=== PATIENT | female | born 1960 | race Caucasian/White ===

== ENCOUNTER 2021-06-10 14:07 | Emergency (ER) | payer MEDICAID, SELFPAY ==
[2021-06-10] VITALS (7 sets, daily range): BP systolic 107–136; BP diastolic 63–75; PULSE 87–114; RESP 18–28; TEMP 36.6–37.8; O2SAT 88–97; BMI 22.5
--- NOTE | 2021-06-10 14:34 | PC.NURSE ---
NOTIFIED CHARGE NURSE OF NEED OF ROOM FOR PT SHE STATED NONE AVAILABLE PT PLACED ON 2L VIA NC.
--- NOTE | 2021-06-10 16:16 | XRR_ITS ---
PROCEDURE INFORMATION: Exam: XR Chest Exam date and time: 06/10/2021 4:16 PM Age: 61 years old Clinical indication: Dyspnea TECHNIQUE: Imaging protocol: XR of the chest. Views: 1 view. COMPARISON: No relevant prior studies available. FINDINGS: Lungs: Emphysematous changes. Pleural spaces: Unremarkable. No pleural effusion. No pneumothorax. Heart/Mediastinum: Unremarkable. No cardiomegaly. 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
[2021-06-10] MEDS: acetaminophen 500 mg Tablet 1000 MG PO (16:46)
--- NOTE | 2021-06-10 16:55 | ECG_ITS ---
[facility] Test Date: 2021-06-10 Pat Name: Kellie Galdamez Department: Room: Gender: Female Continuity Person: : 1960 Requested By: Albin Shaikh Order Number: [id number] Bran MD: Kacie Brown M.D. Measurements Intervals [place] Rate: 95 P: 80 WI: 158 QRS: 85 QRSD: 118 T: 60 QT: 370 QTc: 467 Interpretive Statements SINUS RHYTHM WITH OCCASIONAL VENTRICULAR PREMATURE COMPLEXES INCOMPLETE RIGHT BUNDLE BRANCH BLOCK [90+ ms QRS DURATION, TERMINAL R IN V1/V2, 40+ ms S IN I/aVL/V4/V5/V6] No previous ECG available for comparison Electronically Signed On 06-11-2021 18:01:41 BATTERY BUILDER by Kacie Brown M.D. [id number]
--- NOTE | 2021-06-10 17:10 | ED_ITS ---
HPI - General Adult General: Chief complaint: Upper Respiratory Infection Stated complaint: TROUBLE BREATHING Time Seen by Provider: 06/10/21 16:16 History of Present Illness: HPI narrative: CC: Shortness of breath, fever and generalized weakness HPI: This is a [61] yo patient w/ hx of smoking presenting to the ED with malaise, generalized weakness, cough sputum production, and fever at home x 3- 4days. Since onset of symptoms, has had some shortness of breath and decreased PO intake. NO recent travel. Endorses no sick contacts around. Denies vomiting but reports nausea and diarreha. Denies diaphoresis, other GI or complaints. Denies any pleuritic chest pain, recent surgery/immobilization/travel, or hematemesis or hx of VTE in the past. Onset: 3-4 days ago Duration: ongoing for the last 3-4 days Location: home Severity: moderate Review of Systems Narrative: Constitutional: +subjective fever, +generalized weakness HEENT: No vision changes CV: No chest pain, no palpitations PULM: +cough, +dyspnea. GI: No abdominal pain, +N/-V/+D. : No dysuria MSKEL: No muscle pain SKIN: No new rashes, no lesions. NEURO: No headache, no focal weakness. HEME: No visible bruises PSYCH: Normal mood Physical Exam Narrative: EXAM NARRATIVE: Head: Atraumatic Eyes: PERRL, conjunctiva without injection ENT: Mucous membrane Dry NECK: Supple without lymphadenopathy LUNGS: Coarse lung sounds, tachypnea, no crackles/rhonchi, +mild wheezes b/l CV: Sinus tachycardia ABDOMEN: Soft, nontender EXTREMITY: Normal ROM SKIN: No rash or erythema NEURO: Awake and alert. No focal motor deficits. PSYCH: Normal mood and affect. Course Vital Signs: Vital signs: Vital Signs Temperature 97.8 F 06/10/21 19:48 Pulse Rate 87 06/10/21 19:48 Respiratory Rate 21 H 06/10/21 19:20 Blood Pressure 122/72 06/10/21 19:20 Pulse Oximetry 97 06/10/21 19:20 MDM - General Adult MDM Narrative: Medical decision making narrative: [61]yo patient w/ hx of smoking presenting to the ED with shortness of breath, cough, and malaise concerning . Workup today includes XR chest Defer lab work at this time given that the patient is well appearing with stable vital signs and without recent hospitalization or care facility stay. Given History, Exam, and Workup presentation most consistent with pneumonia.Presentation not consistent with PE, COPD exacerbation, Pneumothorax, TB, Atypical ACS, Esophageal Rupture, Toxic Exposure, Foreign Body Airway Obstruction. Workup: CXR Chest, COVID antigen/ COVID PCR send out Intervention: Tylenol 1gram, PO challenge, serial reassessment, oxygen, duo-neb, decadron [6:30pm] On reassessment, XR findings negative for acute findings. Findings consistent with COVID. Afebrile currently. Patient continues to sat at 95% on 2L oxygen. I performed shared decision making with patient for inpatient admission versus discharge home At [6:30pm], patient declined admission citing strong desire to go home on home oxygen. I have discussed the risks of leaving hospital today including risks of sudden pulmonary decompensation leading to severe respiratory distress and even . Patient verbalizes understanding the consequence of the risks of leaving the hospital today and alternative including staying for serial observation. Given patient's strong desire to go home, I have offered patient outpatient oxygen tank/supply and portable pulse ox with proper instruction to use at home. Patient agrees to monitor oxygen saturation and to come back to the ED if there is any drops in pulse ox reading despite oxygen use. In addition, I have given patient strict follow up with PCP in 24 hrs for reevaluation. Patient verbalizes understanding of all components of our discussion today and reassures me of follow up with PCP and close monitoring. Patient will be going home with 2 L of home oxygen per respiratory therapy. Rx maalox/pepcid PRN dyspepsis, zofran PRN nausea/vomiting, tylenol PRN fever Disposition: Discharge. Patient is given strict return precautions for any worsening dypsnea, changes in pulse ox numbers, any worsening fatigue, dehydration, generalized weakness, altered mental status, increased oxygen requirement, or any new or concerning issues. Lab Data: Labs: Lab Results 06/10/21 06/10/21 06/10/21 16:53 16:53 16:53 WBC 8.1 10^3/uL 10^3/ uL (4.0-10.0) RBC 5.03 10^6/uL 10^6 /uL (4.1-5.3) Hgb 14.0 g/dL g/dL (11.5-15.3) Hct 42.3 % % (37.0-47.0) MCV 84.1 fl fl (81-99) MCH 27.8 pg L pg (28.0-34.0) MCHC 33.1 g/dL g/dL (30.0-36.0) RDW 13.0 % % (12.1-15.1) Plt Count 161 10^3/cmm 10^3 /cmm (130-400) MPV 10.5 fL H fL (7.4-10.4) Neut % (Auto) 82.2 % % Lymph % (Auto) 7.7 % % [place] % (Auto) 9.5 % % Eos % (Auto) 0.0 % % Baso % (Auto) 0.2 % % Neut # (Auto) 6.69 10^3/uL 10^3 /uL (1.8-7.7) Lymph # (Auto) 0.6 10^3/uL L 10^ 3/uL (0.8-4.8) [place] # (Auto) 0.8 10^3/uL 10^3/ uL (0.2-0.9) Eos # (Auto) 0.0 10^3/uL 10^3/ uL (0.0-0.8) Baso # (Auto) 0.0 10^3/uL 10^3/ uL (0.0-0.1) Nucleated RBC % (a uto) 0 % % Nucleated RBCs # 0.0 /100WBC /100W BC Sodium 134 mmol/L L mmol /L (136-145) Potassium 3.7 mmol/L mmol/L (3.5-5.1) Chloride 97 mmol/L L mmol/ L (98-107) Carbon Dioxide 25 mmol/L mmol/L (22-29) Anion Gap 15.7 (5-19) BUN 15 mg/dL mg/dL (8-23) Creatinine 0.4 mg/dL L mg/dL (0.5-0.9) GFR Calculation 161.2 mL/min H mL /min (90-130) Glucose 113 mg/dL mg/dL (65-115) Calculated Osmolal ity 280 mOsm/kg L mOs m/kg (285-295) Calcium 8.3 mg/dL L mg/dL (8.5-10.5) Influenza Type A A g Negative (Negative) Influenza Type B A g Negative (Negative) SARS-CoV-2 Ag (Rap id) 06/10/21 16:53 WBC RBC Hgb Hct MCV MCH MCHC RDW Plt Count MPV Neut % (Auto) Lymph % (Auto) [place] % (Auto) Eos % (Auto) Baso % (Auto) Neut # (Auto) Lymph # (Auto) [place] # (Auto) Eos # (Auto) Baso # (Auto) Nucleated RBC % (a uto) Nucleated RBCs # Sodium Potassium Chloride Carbon Dioxide Anion Gap BUN Creatinine GFR Calculation Glucose Calculated Osmolal ity Calcium Influenza Type A A g Influenza Type B A g SARS-CoV-2 Ag (Rap id) Positive H (Negative) Imaging Data^: Other Imaging: Radiologist's impression: [address] [id number] ReportSigned Patient: Kellie Galdamez #: [id number]: 1960cct#:[id number]/Sex: 61 / FADM Date: 06/10/21Loc: ERRoom/Bed:Attending Dr: Ordering Provider/Ordering MD: Albin Shaikh MD Date of Service: 06/10/21 Procedure(s): XR chest 1V portable [id number] Accession Number(s): [id number] Report Number: [id number] PROCEDURE INFORMATION: Exam: XR Chest Exam date and time: 06/10/2021 4:16 PM Age: 61 years old Clinical indication: Dyspnea TECHNIQUE: Imaging protocol: XR of the chest. Views: 1 view. COMPARISON: No relevant prior studies available. FINDINGS: Lungs: Emphysematous changes. Pleural spaces: Unremarkable. No pleural effusion. No pneumothorax. Heart/Mediastinum: Unremarkable. No cardiomegaly. 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 appears nonaggressive XR/XR chest 1V portable [id number] IMPRESSION: Emphysematous changes, lungs are clear Radiation Dose CTDIVOL = (mGy): DLP = (mGy-cm) Dictated By:Sony Leblanc MDSigned By:Sony Leblanc MDSigned Date/Time:06/10/21 [id number]/ 1616 Discharge Plan Discharge Patient Disposition: Home Clinical Impression: Cough, Fever, Diarrhea, Generalized weakness, COVID, COVID Condition: Stable Prescriptions: New Zofran 4 mg tablet 4 mg PO TID PRN (Reason: nausea and vomiting) 4 Days Qty: 12 RF: 0 acetaminophen 500 mg tablet 500 mg PO Q6H PRN (Reason: pain) 5 Days Qty: 20 RF: 0 Pepcid 20 mg tablet 20 mg PO BID PRN (Reason: abdominal pain) 10 Days Qty: 20 RF: 0 Maalox Advanced 1,000-60 mg tablet,chewable 1 tab PO TID PRN (Reason: abdominal pain) 7 Days Qty: 21 RF: 0 No Action Aleve 220 mg Tablet 220 mg PO Q12H PRN (Reason: Pain) RF: 0 Discharge Orders: Discharge ED (Routine); Ordered 06/10/21 Ordered By: Albin Shaikh Other Ambulatory Orders: DME: Oxygen (Order) Location: None Selected Ordered By: Albin Shaikh Discharge Diet: Advance as tolerated Discharge Activity: Resume usual activity Patient Instructions: COVID-19 (Coronavirus Disease 2019) (ED) Activity Restrictions/Additional Instructions: Come back to the emergency room if your symptoms worsen, have any shortness of breath, fever/chills, dehydration, inability tolerate p.o., any difficulty breathing, or any new or concerning complaints. Please use your pulse ox daily. Please return to the emergency room if your pulse ox reads consistently less than 88%. Use your home oxygen 2 L as needed. Coding Level of Care Code ED Assembly Stock Supervisor for Rere Walton
--- NOTE | 2021-06-10 17:12 | PC.PHAR ---
pt states she takes care of her own medications-pt states she takes no rx medications no meds pull up on ext med history
[2021-06-10] MEDS: sodium chloride 0.9% 1,000 ML 999 ML IV ×2 (17:13→19:19)
[2021-06-10 17:20] LABS: Basophils % 0.2 %; Hematocrit 42.3 % (37.0-47.0); Lymphocytes # 0.6 10^3/uL (0.8-4.8); Lymphocytes % 7.7 %; Mean Corpuscular HGB Conc 33.1 g/dL (30.0-36.0); Mean Corpuscular Hemoglobin 27.8 pg (28.0-34.0); Mean Corpuscular Volume 84.1 fl (81-99); Mean Platelet Volume 10.5 fL (7.4-10.4); Monocytes # 0.8 10^3/uL (0.2-0.9); Monocytes % 9.5 %; Neutrophils # 6.69 10^3/uL (1.8-7.7); Neutrophils % 82.2 %; Nucleated Red Blood Cells % 0 %; Platelet Count 161 10^3/cmm (130-400); Red Blood Count 5.03 10^6/uL (4.1-5.3); White Blood Count 8.1 10^3/uL (4.0-10.0)
[2021-06-10 17:46] LABS: Anion Gap 15.7 (5-19); Blood Urea Nitrogen 15 mg/dL (8-23); Calcium 8.3 mg/dL (8.5-10.5); Carbon Dioxide 25 mmol/L (22-29); Chloride 97 mmol/L (98-107); Glomerular Filtration Rate 161.2 mL/min (90-130); Glucose 113 mg/dL (65-115); Osmolality Calculated 280 mOsm/kg (285-295); Potassium 3.7 mmol/L (3.5-5.1); Sodium 134 mmol/L (136-145)
[2021-06-10] MEDS: ondansetron 2 mg/ML SDV 2 mL 4 MG IVP (17:55)
[2021-06-10] MEDS: dexamethasone 10 mg/mL INJ 6 MG IVP (17:56)
[2021-06-10 18:09] LABS: SARS Covid-2 Antigen Positive (Negative)
[2021-06-10 18:10] LABS: Influenza A by IFA Negative (Negative); Influenza B by IFA Negative (Negative)
[2021-06-10] MEDS: remdesivir 200 MG in sodium chloride 0.9% (100 ml) 60 ML 100 MG IV (19:19)
[2021-06-10] MEDS: ketorolac 30 mg/mL INJ IVP (19:47)
[2021-06-11 14:50] LABS: Coronavirus Test Green County Detected
== END 2021-06-10 21:35 | disposition home or self-care (01) ==
PROVIDERS: Emergency Provider Emergency Medicine
DX: U07.1 COVID-19 (principal); R06.02 Shortness of breath; R05.9 Cough, unspecified; R19.7 Diarrhea, unspecified; R53.1 Weakness
CPT/HCPCS: 71045; 80048; 85025; 87426; 87635; 87804; 93005; 96361; 96365; 96375; 99284; J1100; J1885; J2405; J7030

== ENCOUNTER 2021-06-12 09:32 | Emergency (ER) | payer MEDICAID, SELFPAY ==
[2021-06-12] VITALS (13 sets, daily range): BP systolic 106–152; BP diastolic 50–66; PULSE 81–123; RESP 18–26; TEMP 36.6–37.1; O2SAT 93–99
--- NOTE | 2021-06-12 09:55 | XR_ITS ---
WS: [id number] Portable AP upright chest, 06/12/2021 Clinical Data: sob Comparison: Portable chest, 06/10/2021. Findings: Minimal patchy bilateral opacities have developed since the last chest x-ray. The heart is normal. No nodules, masses or effusions are seen. The pulmonary vascularity is not remarkable. The di aphragms are flattened. 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 There i s osteoarthritis of the right shoulder joint. XR/XR chest 1V portable [id number] Impression: 1. Development of minimal patchy bilateral opacities in the last 2 days which m ay represent acute pneumonia. 2. Hyperinflation.
--- NOTE | 2021-06-12 10:02 | W.ED.SOB ---
HPI - SOB/Dyspnea General: Chief Complaint: Shortness of Breath/Dyspnea Stated Complaint: Covid + resp distress Time Seen by Provider: 06/12/21 09:48 Source: RN notes reviewed and old records reviewed Mode of arrival: EMS History of Present Illness: HPI Narrative: 61-year-old female that is a very poor historian presents chief complaint of worsening of her symptoms patient apparently was recently found to be positive for Covid unknown which was diagnosed due to her being a poor historian patient presented to the ER for further assessment of acute shortness of breath difficulty breathing and low O2 sat. MD elicited complaint: shortness of breath and cough Review of Systems General: Reports: ROS unobtainable due to medical condition and ROS unobtainable due to mental status Physical Exam Narrative: EXAM NARRATIVE: Patient appears to be in moderate respiratory distress moderate tachypnea pressuring breathing noted inspiratory expiratory wheezing noted Const: COMMON NORMALS: healthy appearing; apparent distress (Patient moderate respiratory distress with tachypnea with inspiratory expir) EXAM LIMITATIONS: altered mental status HENMT: COMMON NORMALS: normocephalic and atraumatic HEAD & SCALP: normocephalic and atraumatic Eye: COMMON NORMALS: Equal, round and reactive pupils present and EOMs intact bilaterally PUPIL: Yes Equal, round and reactive pupils present Neck/C-Spine: COMMON NORMALS: full ROM, supple and no JVD Lymph: LYMPHATIC: no lymphadenopathy noted Chest: COMMONS NORMALS: normal inspection of the chest and normal palpation of entire chest wall Resp: COMMON NORMALS: normal respiratory effort, No retractions and clear to auscultation bilaterally EFFORT & INSPECTION: Yes able to speak in complete sentences and Yes symmetric chest movement AUSCULTATION: clear to auscultation bilaterally Cardio: COMMON NORMALS: no JVD, regular rhythm and S1 normal heart sound present; negative for regular rate (tachycardic in 120 bpm on exam. ) RATE: abnormal rate (tachycardic in 120 bpm on exam. ) RHYTHM: regular rhythm and abnormal rhythm HEART SOUNDS: S1 normal heart sound present GI: COMMON NORMALS: Normal to inspection, nondistended, normoactive bowel sounds present, Soft to palpation and non-tender INSPECTION: Yes normal to inspection PALPATION: Yes Soft to palpation : COMMON NORMALS: Yes no CVA tenderness BLADDER/KIDNEY EXAM: Yes no CVA tenderness Back/Pelvis: COMMON NORMALS: no CVA tenderness Extremity: COMMON NORMALS: normal to inspection and full ROM Neuro: COMMON NORMALS: CN's II-XII intact bilaterally, moves all extremities and no focal motor deficits Psych: COMMON NORMALS: mental status grossly normal, Normal thought process present, cooperative and normal affect THOUGHT PROCESS: Normal thought process present Skin: COMMON NORMALS: no rashes or lesions noted GENERAL SKIN EXAM: no rashes or lesions noted Course ED course: prior to arrival per EMS or provided Decadron and steroids neb treatments will be obtaining additional Covid lab work will continue to follow. Vital Signs: Vital signs: Vital Signs Temperature 98.1 F 06/12/21 10:29 Pulse Rate 94 06/12/21 14:17 Respiratory Rate 23 H 06/12/21 14:17 Blood Pressure 108/66 06/12/21 14:17 Pulse Oximetry 93 06/12/21 14:17 MDM - SOB/Dyspnea MDM Narrative: Medical decision making narrative: Patient was attempted to be admitted to our facility due to her hypoxia due to COVID-19 pneumonia she eventually required BiPAP due to low ABG she has become encephalopathic due to her pH 7.260 PCO2 is 59.7. She tolerated BiPAP quite well she was found to have generalized elevation her labs suggestive of COVID-19 which she was found to have 3 days ago patient is on day 6 attempt admit her to our facility we have no ICU or stepdown bed availability. Had staff contact multiple facilities patient eventually was accepted at [facility] located in [facility] by Dr. Serra, patient will go by ground transportation via ALS. Lab Data: Labs: Lab Results 06/12/21 06/12/21 06/12/21 10:42 10:50 10:50 WBC 9.1 10^3/uL 10^3/ uL (4.0-10.0) RBC 5.14 10^6/uL 10^6 /uL (4.1-5.3) Hgb 14.1 g/dL g/dL (11.5-15.3) Hct 44.7 % % (37.0-47.0) MCV 87.0 fl fl (81-99) MCH 27.4 pg L pg (28.0-34.0) MCHC 31.5 g/dL g/dL (30.0-36.0) RDW 13.2 % % (12.1-15.1) Plt Count 189 10^3/cmm 10^3 /cmm (130-400) MPV 11.0 fL H fL (7.4-10.4) Lymph % (Auto) Not Reportable [place] % (Auto) Not Reportable Lymph # (Auto) Not Reportable [place] # (Auto) Not Reportable Total Counted 100 (0-100) Atypical Lymphs % 0.0 % % (0-5) Absolute Neutrophi ls 8.1 10^3/cmm H 10 ^3/cmm (1.4-6.5) Segmented Neutroph ils 66 % % Abs Segm Neuts (Ma n) 6.0 10/cmm 10/cmm (1.6-7.1) Band Neutrophils 23.0 % % Abs Band Neuts (Ma n) 2.1 10^3/cmm H 10 ^3/cmm (0.0-1.2) Absolute Lymphocyt es 0.2 10^3/cmm L 10 ^3/cmm (1.2-3.4) Lymphocytes (Manua l) 2 % % Monocytes (Manual) 9.0 % % Absolute Monocytes 0.8 10^3/cmm H 10 ^3/cmm (0.1-0.6) Eosinophils (Manua l) 0 % % Absolute Eosinophi ls 0.0 10^3/cmm 10^3 /cmm (0.0-0.7) Basophils (Manual) 0.0 % % Absolute Basophils 0.0 10^3/cmm 10^3 /cmm (0.0-0.2) Platelet Estimate Normal (Normal) Giant Platelets Trace PT 14.30 SECONDS SEC ONDS (12.1-14.9) INR 1.08 (0.8-1.2) Specimen Type Arterial Sample Site Radial, left ABG pH 7.26 L (7.35-7.45) ABG pCO2 69.7 mmHg H* mmHg (35-45) ABG pO2 106.0 mmHg H mmHg (80.0-100.0) ABG HCO3 31.2 mmol/L H mmo l/L (22-26) ABG Base Excess 2.1 mmol/L H mmol /L (-2.0-2.0) Willi Test Pos Hematocrit 41.8 % % (37-47) Hgb O2 Saturation 96.2 % % (95-100) Carboxyhemoglobin 0.8 %THgb %THgb (0.4-20.1) Methemoglobin 0.9 % % (0.4-1.5) Total Hemoglobin 13.6 g/dL g/dL (12-16) O2 Delivery Device Nc O2 Liters/Min 4.0 % % FiO2 36.0 % % Clerical Order Filler ID Hensa Sodium Potassium Chloride Carbon Dioxide Anion Gap BUN Creatinine GFR Calculation Glucose Calculated Osmolal ity Lactic Acid Lactic Acid (Sepsi s) Calcium Total Bilirubin AST ALT Alkaline Phosphata se Lactate Dehydrogen ase Troponin T Baselin e Troponin T 120 Min [place] Troponin T C-Reactive Protein NT-Pro-B Natriuret Pep Total Protein Albumin Globulin Lipase Urine Color Urine Appearance Urine pH Ur Specific Gravit y Urine Protein Urine Glucose (UA) Urine Ketones Urine Blood Urine Nitrate Urine Bilirubin Urine Urobilinogen Ur Leukocyte Lalita ase 06/12/21 06/12/21 06/12/21 10:50 10:50 10:50 WBC RBC Hgb Hct MCV MCH MCHC RDW Plt Count MPV Lymph % (Auto) [place] % (Auto) Lymph # (Auto) [place] # (Auto) Total Counted Atypical Lymphs % Absolute Neutrophi ls Segmented Neutroph ils Abs Segm Neuts (Ma n) Band Neutrophils Abs Band Neuts (Ma n) Absolute Lymphocyt es Lymphocytes (Manua l) Monocytes (Manual) Absolute Monocytes Eosinophils (Manua l) Absolute Eosinophi ls Basophils (Manual) Absolute Basophils Platelet Estimate Giant Platelets PT INR Specimen Type Sample Site ABG pH ABG pCO2 ABG pO2 ABG HCO3 ABG Base Excess Willi Test Hematocrit Hgb O2 Saturation Carboxyhemoglobin Methemoglobin Total Hemoglobin O2 Delivery Device O2 Liters/Min FiO2 Clerical Order Filler ID Sodium 134 mmol/L L mmol /L (136-145) Potassium 3.7 mmol/L mmol/L (3.5-5.1) Chloride 95 mmol/L L mmol/ L (98-107) Carbon Dioxide 25 mmol/L mmol/L (22-29) Anion Gap 17.7 (5-19) BUN 11 mg/dL mg/dL (8-23) Creatinine 0.4 mg/dL L mg/dL (0.5-0.9) GFR Calculation 161.2 mL/min H mL /min (90-130) Glucose 152 mg/dL H mg/dL (65-115) Calculated Osmolal ity 280 mOsm/kg L mOs m/kg (285-295) Lactic Acid 2.1 mmol/L mmol/L (0.5-2.2) Lactic Acid (Sepsi s) Calcium 7.9 mg/dL L mg/dL (8.5-10.5) Total Bilirubin 0.3 mg/dL mg/dL (0.15-1.2) AST 30 U/L U/L (0-32) ALT 32 U/L U/L (0-33) Alkaline Phosphata se 83 IU/L IU/L (35-105) Lactate Dehydrogen ase 213 U/L U/L (135-214) Troponin T Baselin e 81 ng/L H ng/L (0-10) Troponin T 120 Min [place] Troponin T C-Reactive Protein 126.8 mg/L H mg/L (0.0-4.9) NT-Pro-B Natriuret Pep 1108 pg/mL H pg/m L (0-125) Total Protein 6.5 g/dL L g/dL (6.6-8.7) Albumin 3.4 g/dL L g/dL (3.5-5.2) Globulin 3.1 g/dL g/dL (1.3-4.6) Lipase 15 U/L U/L (13-60) Urine Color Urine Appearance Urine pH Ur Specific Gravit y Urine Protein Urine Glucose (UA) Urine Ketones Urine Blood Urine Nitrate Urine Bilirubin Urine Urobilinogen Ur Leukocyte Lalita ase 06/12/21 06/12/21 06/12/21 12:30 13:05 14:28 WBC RBC Hgb Hct MCV MCH MCHC RDW Plt Count MPV Lymph % (Auto) [place] % (Auto) Lymph # (Auto) [place] # (Auto) Total Counted Atypical Lymphs % Absolute Neutrophi ls Segmented Neutroph ils Abs Segm Neuts (Ma n) Band Neutrophils Abs Band Neuts (Ma n) Absolute Lymphocyt es Lymphocytes (Manua l) Monocytes (Manual) Absolute Monocytes Eosinophils (Manua l) Absolute Eosinophi ls Basophils (Manual) Absolute Basophils Platelet Estimate Giant Platelets PT INR Specimen Type Sample Site ABG pH ABG pCO2 ABG pO2 ABG HCO3 ABG Base Excess Willi Test Hematocrit Hgb O2 Saturation Carboxyhemoglobin Methemoglobin Total Hemoglobin O2 Delivery Device O2 Liters/Min FiO2 Clerical Order Filler ID Sodium Potassium Chloride Carbon Dioxide Anion Gap BUN Creatinine GFR Calculation Glucose Calculated Osmolal ity Lactic Acid Lactic Acid (Sepsi s) 1.6 mmol/L mmol/L (0.5-2.2) Calcium Total Bilirubin AST ALT Alkaline Phosphata se Lactate Dehydrogen ase Troponin T Baselin e Troponin T 120 Min [place] 93.11 ng/L H ng/L (0-10) Delta Troponin T 12.11 ABS# H* ABS # (0-10) C-Reactive Protein NT-Pro-B Natriuret Pep Total Protein Albumin Globulin Lipase Urine Color Yellow (Yellow) Urine Appearance Clear (CLEAR) Urine pH 5 (5-7) Ur Specific Gravit y 1.010 (1.005-1.030) Urine Protein Neg (Negative) Urine Glucose (UA) Trace H (Normal) Urine Ketones Negative (Negative) Urine Blood Neg (Negative) Urine Nitrate Negative (Negative) Urine Bilirubin Neg (Negative) Urine Urobilinogen Norm mg/dL mg/dL (Negative) Ur Leukocyte Lalita ase Negative (Negative) Discharge Plan Discharge Patient Disposition: Xfer Short-Term Hosp Clinical Impression: Pneumonia due to 2019 novel coronavirus, Acute respiratory failure with hypoxia Condition: Fair Coding Level of Care Code ED Architectural Draftsman for Slickg Fwd Exam Comprehensive
--- NOTE | 2021-06-12 10:41 | PC.PHAR ---
pt unable to verify medications-called pts starr [phone] no answer and called pts daughter alba [phone] no answer-medications entered are the rxs written when pt was here on 06/10/21 and the aleve that the pt states she was taking when she was here on 06/10/21
[2021-06-12] MEDS: sodium chloride 0.9% 500 ML 999 ML IV (10:50)
[2021-06-12] MEDS: FUROsemide 10 mg/mL SDV 4mL 40 MG IVP (10:51)
[2021-06-12] MEDS: magnesium sulfate premix 2 GM/50 ML PIGGYBACK IV (10:54)
[2021-06-12 10:55] LABS: ABG PH Result 7.26 (7.35-7.45); Arterial Blood Gas Hematocrit 41.8 % (37-47); Base Excess ABG 2.1 mmol/L (-2.0-2.0); Blood Gas Allen Test Pos; Blood Gas Sample Site Radial, left; Blood Gas Sample Type Arterial; Carboxyhemoglobin 0.8 %THgb (0.4-20.1); HCO3 ABG 31.2 mmol/L (22-26); HGB O2 Sat 96.2 % (95-100); Methemoglobin 0.9 % (0.4-1.5); Oxygen Device NC; Total Hemoglobin 13.6 g/dL (12-16)
[2021-06-12 11:01] LABS: Hematocrit 44.7 % (37.0-47.0); Hemoglobin 14.1 g/dL (11.5-15.3); Mean Corpuscular HGB Conc 31.5 g/dL (30.0-36.0); Mean Corpuscular Hemoglobin 27.4 pg (28.0-34.0); Platelet Count 189 10^3/cmm (130-400); Red Blood Count 5.14 10^6/uL (4.1-5.3); Red Cell Distribution Width 13.2 % (12.1-15.1); White Blood Count 9.1 10^3/uL (4.0-10.0)
[2021-06-12 11:17] LABS: INR 1.08 (0.8-1.2)
[2021-06-12 11:26] LABS: ABG PCO2 69.7 mmHg (35-45)
[2021-06-12 11:32] LABS: Lactic Sepsis W/Reflex 2.1 mmol/L (0.5-2.2)
[2021-06-12 11:42] LABS: Alanine Aminotransferase 32 U/L (0-33); Albumin Level 3.4 g/dL (3.5-5.2); Alkaline Phosphatase 83 IU/L (35-105); Anion Gap 17.7 (5-19); Aspartate Amino Transferase 30 U/L (0-32); Blood Urea Nitrogen 11 mg/dL (8-23); C Reactive Protein 126.8 mg/L (0.0-4.9); Calcium 7.9 mg/dL (8.5-10.5); Carbon Dioxide 25 mmol/L (22-29); Chloride 95 mmol/L (98-107); Globulin 3.1 g/dL (1.3-4.6); Glomerular Filtration Rate 161.2 mL/min (90-130); Glucose 152 mg/dL (65-115); Lactate Dehydrogenase 213 U/L (135-214); Lipase 15 U/L (13-60); NT Pro B Type Natriuretic Pept 1108 pg/mL (0-125); Osmolality Calculated 280 mOsm/kg (285-295); Potassium 3.7 mmol/L (3.5-5.1); Sodium 134 mmol/L (136-145); Total Bilirubin 0.3 mg/dL (0.15-1.2); Total Protein 6.5 g/dL (6.6-8.7)
--- NOTE | 2021-06-12 11:52 | ECG_ITS ---
[facility] Test Date: 2021-06-12 Pat Name: Kellie Galdamez Department: Room: Gender: Female Mattress Filler: : 1960 Requested By: Canelo Hopkins Order Number: [id number] Bran MD: Kala Lester M.D. Measurements Intervals [place] Rate: 104 P: 79 [place]: 148 QRS: 81 QRSD: 116 T: 47 QT: 365 QTc: 482 Interpretive Statements SINUS TACHYCARDIA WITH OCCASIONAL VENTRICULAR PREMATURE COMPLEXES INCOMPLETE RIGHT BUNDLE BRANCH BLOCK [90+ ms QRS DURATION, TERMINAL R IN V1/V2, 40+ ms S IN I/aVL/V4/V5/V6] ABNORMAL RHYTHM ECG Compared to ECG 06/10/2021 18:04:07 Sinus rhythm no longer present Electronically Signed On 06-12-2021 23:42:59 TELEPHONE ASSEMBLER by Kala Lester M.D. [id number]
[2021-06-12 12:44] LABS: Slide Review Slide Review Perform; Total Cells Counted 100 (0-100)
[2021-06-12 12:45] LABS: Reflex Lactate Order REFLEX LACTIC ORDERD
[2021-06-12 12:49] LABS: Absolute Neutrophil 8.1 10^3/cmm (1.4-6.5); Band Neutrophils Absolute 2.1 10^3/cmm (0.0-1.2); Eosinophils 0 %; Giant Platelets Trace; Lymphocytes 2 %; Lymphocytes Absolute 0.2 10^3/cmm (1.2-3.4); Monocytes Absolute 0.8 10^3/cmm (0.1-0.6); Platelet Estimate Normal (Normal); Segmented Neutrophils 66 %
[2021-06-12] MEDS: acetaminophen 1,000 MG/100 ML PIGGYBACK 400 MG IV (12:57)
[2021-06-12] MEDS: sodium chloride 0.9% 1,000 ML 999 ML IV ×2 (12:58→16:08)
[2021-06-12 13:18] LABS: Add Urine Microscopic? NO; Charge for UA Resulting for Rev
[2021-06-12 13:21] LABS: Troponin(5th) Baseline 81 ng/L (0-10)
[2021-06-12 13:28] LABS: Urine Color Yellow (Yellow)
[2021-06-12 13:29] LABS: Bilirubin Urine Neg (Negative); Blood Urine Neg (Negative); Glucose Urine UA Trace (Normal); Ketones Urine Negative (Negative); Leukocyte Esterase Urine Negative (Negative); Nitrate Urine Negative (Negative); Protein Urine Neg (Negative); Urine Appearance Clear (CLEAR); Urobilinogen Urine Norm (Negative); pH Urine 5 (5-7)
[2021-06-12 13:31] LABS: Troponin 5 2HR 93.11 ng/L (0-10)
[2021-06-12 13:33] LABS: Troponin 5 2HR Delta 12.11 ABS# (0-10)
[2021-06-12] MEDS: dexamethasone 10 mg/mL INJ 20 MG IVP (14:30)
[2021-06-12 14:51] LABS: Lactic Acid level (Lactate) 1.6 mmol/L (0.5-2.2)
[2021-06-12] MEDS: remdesivir 200 MG in sodium chloride 0.9% (100 ml) 60 ML 100 MG IV (15:08)
--- NOTE | 2021-06-12 16:40 | PC.NURSE ---
Called and gave report to Madelin BOOKER at [facility].
[2021-06-12 17:47] LABS: Troponin 5 6HR 70.36 ng/L (0-10)
== END 2021-06-12 18:09 | disposition short-term general hospital (02) ==
PROVIDERS: Emergency Provider Emergency Medicine
DX: U07.1 COVID-19 (principal); J12.82 Pneumonia due to coronavirus disease 2019; J96.01 Acute respiratory failure with hypoxia
CPT/HCPCS: 36415; 36600; 51702; 71045; 80053; 81003; 82805; 83605; 83615; 83690; 83880; 84484; 85007; 85025; 85610; 86140; 87040; 93005; 94640; 94660; 96361; 96365; 96367; 96375; 99291; J1100; J1940; J3475; J7030; J7040; J7611

== ENCOUNTER → 2021-07-15 15:21 | Outpatient (BNVA) | payer MEDICAID, SELFPAY | PROVIDERS: PCP Nurse Practitioner Family; Visit Provider Nurse Practitioner Family | DX: M79.89 Other specified soft tissue disorders (principal); I10 Essential (primary) hypertension | CPT/HCPCS: 80053; 83880 ==

== ENCOUNTER → 2021-08-28 09:58 | Outpatient (BNVA) | payer MEDICAID, SELFPAY | PROVIDERS: PCP Nurse Practitioner Family; Visit Provider Nurse Practitioner Family | DX: L65.9 Nonscarring hair loss, unspecified (principal); R60.9 Edema, unspecified | CPT/HCPCS: 80061; 84443 ==

== ENCOUNTER 2021-09-02 13:30 | Outpatient (CLI) | payer MEDICAID, SELFPAY ==
--- NOTE | 2021-09-02 13:30 | USCV_ITS ---
Kellie Galdamez Age: 61 Gender: F : 1960 Exam Date: 09/02/2021 13:44 Ordering Phys: Nicolle Fox-Dede FLOW MATCH SOFA CUTTER Technologist: CATHERINE Exam Location: [facility] Indication: PVD Risk Factors: Previous Vascular Surgery: RIGHT LEFT BP: 127.0 / 90.00 BP: 139.0/ 85.00 0 0 Waveform Velocity (cm/s) Velocity (cm/s) Waveform Biphasic 117.3 Iliac Prox 127.8 Biphasic Biphasic 81.7 Iliac Mid 95.6 Biphasic Biphasic 132.2 Iliac Distal 107.6 Biphasic Biphasic 77.9 UX INFORMATION ARCHITECT 117.0 Biphasic Biphasic 139.8 SFA Prox 117.0 Biphasic Biphasic 145.9 SFA Mid 159.8 Biphasic Biphasic SFA Dist Biphasic 102.5 100.9 Biphasic 38.3 POP 76.0 Biphasic Biphasic 39.0 FLATWORK IRONER 53.4 Biphasic Biphasic 43.5 DPA 31.5 Biphasic 0.8 KAREN 0.9 FINDINGS Mildly diminished resting ABIs bilaterally Mild diffuse plaques in the iliac and femoral arteries bilaterally. Abnormal arterial Doppler waveforms CONCLUSIONS 1. Features history of some mild peripheral artery disease bilaterally. 2. Mild diffuse plaques in the iliac and femoral arteries bilaterally, based on the B-mode imaging. Dr Kala Lester MD [facility] (Electronically Signed) Final Date: 03 September 2021 08:55 S
== END 2021-09-02 13:31 | disposition home or self-care (01) ==
LOC: RAD 13:32
PROVIDERS: PCP Nurse Practitioner Family; Visit Provider Nurse Practitioner Family
DX: R60.0 Localized edema (principal); I73.9 Peripheral vascular disease, unspecified; I70.8 Atherosclerosis of other arteries
CPT/HCPCS: 93925

== ENCOUNTER 2021-11-22 15:21 | Outpatient (CLI) | payer MEDICAID, SELFPAY ==
--- NOTE | 2021-11-22 15:41 | XR_ITS ---
WS: [id number] XR hip LT 2-3V wo/w pel* [id number] REASON FOR EXAM: M25.552 - Pain in left hip FINDINGS: No fracture or focal bone lesion. Severe narrowing of the left hip joint space with subchondral sclerosis and cystic change in the acet abulum and femoral head with large circumferential osteophyte of the femoral head. No soft tissue abnormality. XR/XR hip LT 2-3V wo/w pel* [id number] IMPRESSION: Severe osteoarthritis of the left hip.
== END 2021-11-22 15:22 | disposition home or self-care (01) ==
LOC: RAD 15:29
PROVIDERS: PCP Nurse Practitioner Family; Visit Provider Nurse Practitioner Family
DX: M16.12 Unilateral primary osteoarthritis, left hip (principal); M25.552 Pain in left hip
CPT/HCPCS: 73502

== ENCOUNTER → 2022-01-27 09:26 | Outpatient (BNVA) | payer MEDICAID, SELFPAY | PROVIDERS: PCP Nurse Practitioner Family; Referring Provider Nurse Practitioner Family; Visit Provider Specialist | DX: M16.12 Unilateral primary osteoarthritis, left hip (principal) | CPT/HCPCS: 73502; 99204 ==

== ENCOUNTER 2022-02-18 16:22 | Observation (INO) | payer MEDICAID, SELFPAY ==
[2022-02-14 11:24] VITALS: BMI 22.8
[2022-02-14 12:00] LABS: Basophils % 0.7 %; Eosinophils # 0.1 10^3/uL (0.0-0.8); Eosinophils % 1.9 %; Hematocrit 41.1 % (37.0-47.0); Hemoglobin 13.6 g/dL (11.5-15.3); Lymphocytes # 1.2 10^3/uL (0.8-4.8); Mean Corpuscular HGB Conc 33.1 g/dL (30.0-36.0); Mean Corpuscular Hemoglobin 28.2 pg (28.0-34.0); Mean Corpuscular Volume 85.1 fl (81-99); Mean Platelet Volume 10.3 fL (7.4-10.4); Monocytes # 0.5 10^3/uL (0.2-0.9); Monocytes % 8.4 %; Neutrophils # 3.58 10^3/uL (1.8-7.7); Neutrophils % 66.6 %; Nucleated Red Blood Cells % 0 %; Platelet Count 217 10^3/cmm (130-400); Red Blood Count 4.83 10^6/uL (4.1-5.3); Red Cell Distribution Width 12.8 % (12.1-15.1); White Blood Count 5.4 10^3/uL (4.0-10.0)
[2022-02-14 12:09] LABS: Add Urine Microscopic? NO; Charge for UA Resulting for Rev
[2022-02-14 12:31] LABS: Alanine Aminotransferase 14 U/L (0-33); Albumin Level 4.4 g/dL (3.5-5.2); Alkaline Phosphatase 110 IU/L (35-105); Anion Gap 12.1 (5-19); Aspartate Amino Transferase 16 U/L (0-32); Blood Urea Nitrogen 9 mg/dL (8-23); Calcium 8.8 mg/dL (8.5-10.5); Carbon Dioxide 26 mmol/L (22-29); Chloride 106 mmol/L (98-107); Globulin 2.5 g/dL (1.3-4.6); Glomerular Filtration Rate 161.2 mL/min (90-130); Glucose 100 mg/dL (65-115); Osmolality Calculated 289 mOsm/kg (285-295); Potassium 4.1 mmol/L (3.5-5.1); Sodium 140 mmol/L (136-145); Total Bilirubin 0.4 mg/dL (0.15-1.2); Total Protein 6.9 g/dL (6.6-8.7)
[2022-02-14 12:32] LABS: Creatinine Clr Calc Pharmacy 148.9797
[2022-02-14 12:43] LABS: Urine Appearance Clear (CLEAR); Urine Color Yellow (Yellow)
[2022-02-14 12:44] LABS: Glucose Urine UA Norm (Normal); Protein Urine Neg (Negative); Specific Gravity, Urine 1.015 (1.005-1.030); pH Urine 9 (5-7)
[2022-02-14 12:45] LABS: Bilirubin Urine Neg (Negative); Blood Urine Neg (Negative); Ketones Urine Negative (Negative); Leukocyte Esterase Urine Negative (Negative); Nitrate Urine Negative (Negative); Sulfosalicylic Acid Urine Negative (Negative); Urobilinogen Urine Norm (Negative)
--- NOTE | 2022-02-14 13:52 | P.ANESASSM_ITS ---
Pre-Anesthetic Assessment Height/Weight: Height 1.73 m Weight 68.039 kg Preop Diagnosis: Primary osteoarthritis right hip Operation Date: 02/18/22 10:30 Proposed Procedures p LEFT TOTAL HIP ARTHROPLASTY 49413,M16.9(Left) - Mone Balbuena MD Familial anesthetic complications: PONV Was Beta Khoa taken within 24 hours: N/A Was Clonidine taken within 24 hours: N/A Social Tobacco and No alcohol Exam alert, oriented x 3, clear to auscultation bilaterally and regular rate & rhythm Airway Submandibular: within normal limits Cervical ROM: within normal limits Mallampati: Class I Dentition: false History/ROS No significant complaints Pulmonary Chronic Obstructive Pulmonary Disease CV/HEM None reported None reported Hepatic None reported GI Gastroesophageal Reflux Disease (Well controlled ) Metabolic None reported Musc/skel None reported Neuropsych None reported Anesthetic Plan ASA status: 3 Anesthesia: Anesthesia Evaluation, General and Regional (specify below) (Spinal) Other: We discussed risk and benefits of general vs spinal anesthesia including DVT risk, infection, paralysis/catastrophic nerve injury, back bruising/pain, PDPH, conversion to general in case of spinal, PONV, sore throat (sometimes severe), corneal abrasion, positioning and peripheral nerve injuries, life threatening allergic reaction, post operative ICU admission requiring prolonged intubation, stroke, heart attack, , post operative delirium and/or post operative cognitive decline, and rare incidences of recall (under general anesthesia). Patient consents to either spinal or general anesthesia on day of surgery. Risk of > 500 ml blood loss (7ml/kg in children): No Medications/Allergies Home Medications Medication Instructions Recorded Confirmed Last Taken Type naproxen sodium 220 mg tablet 220 mg PO Q12H PRN Pain 06/10/21 02/14/22 Unknown History (Aleve) famotidine 20 mg tablet 20 mg PO DAILY #90 tabs 09/19/21 02/14/22 Unknown Rx albuterol sulfate 90 mcg/actuation 2 puff inhalation Q6H PRN 01/17/22 02/14/22 Unknown Rx aerosol inhaler (ProAir HFA) shortness of breath or wheezing #6.7 grams Allergies Allergy/AdvReac Type Severity Reaction Status Date / Time No Known Allergies Allergy Verified 01/27/22 16:47 [facility] Anesthesia Medical History COPD (chronic obstructive pulmonary disease) Family History Mother Dementia Father No problems noted. Social History Smoking and tobacco status: never smoked Data Anesthesia : 02/14/22 11:36 02/14/22 11:36 Short CBC 02/14/22 Range/Units 11:36 WBC 5.4 (4.0-10.0) 10^3/uL Hgb 13.6 (11.5-15.3) g/dL Hct 41.1 (37.0-47.0) % MCV 85.1 (81-99) fl Plt Count 217 (130-400) 10^3/cmm Neut % (Auto) 66.6 % Neut # (Auto) 3.58 (1.8-7.7) 10^3/uL BMP 02/14/22 11:36 Sodium 140 Potassium 4.1 Chloride 106 Carbon Dioxide 26 BUN 9 Creatinine 0.4 L Glucose 100 Calcium 8.8 Liver Function 02/14/22 Range/Units 11:36 Total Bilirubin 0.4 (0.15-1.2) mg/dL AST 16 (0-32) U/L ALT 14 (0-33) U/L Alkaline Phosphatase 110 H (35-105) IU/L Albumin 4.4 (3.5-5.2) g/dL Urine 02/14/22 Range/Units 11:51 Urine Color Yellow (Yellow) Urine Appearance Clear (CLEAR) Urine pH 9 H (5-7) Ur Specific [place] 1.015 (1.005-1.030) Urine Protein Neg (Negative) Urine Glucose (UA) Norm (Normal) Urine Ketones Negative (Negative) Urine Nitrate Negative (Negative) Urine Bilirubin Neg (Negative) Ur Leukocyte Esterase Negative (Negative) Cardiac Studies: No Data to Display
[2022-02-18] VITALS (23 sets, daily range): BP systolic 95–145; BP diastolic 55–82; PULSE 68–105; RESP 14–118; TEMP 36.1–36.9; O2SAT 89–100; BMI 22.8
[2022-02-18] MEDS: acetaminophen 1,000 MG/100 ML PIGGYBACK 400 MG IV ×2 (09:40→17:11)
[2022-02-18] MEDS: sodium chloride 0.9% 1,000 ML 30 ML IV ×2 (09:40→15:38)
[2022-02-18] MEDS: CELEcoxib 200 mg Capsule 400 MG PO (09:40)
--- NOTE | 2022-02-18 09:52 | P.ANESUD_ITS ---
Pre-Anesthetic Update Pre-Anesthetic Assessment: Date of Surgery/Procedure: 02/18/22 Preop Corina gnosis: Primary osteoarthritis right hip Proposed Procedure: Operation Date: 02/18/22 10:30 Proposed Procedures p LEFT TOTAL HIP ARTHROPLASTY 07807,M16.9(Left) - Mone Balbuena MD Any changes to Pre-Anesthetic Assessment?: No Last Intake: 02/17/22 Vitals: Temperature 98.5 F 02/18/22 09:00 Temperature Source Temporal Artery S can 02/18/22 09:00 Pulse Rate 105 H 02/18/22 09:00 Respiratory Rate 18 02/18/22 09:00 Blood Pressure 145/82 02/18/22 09:00 Blood Pressure Susi n 103 02/18/22 09:00 Pulse Oximetry 94 02/18/22 09:00 Oxygen Delivery Me thod 02/18/22 09:12 Exam: Pre-Anes Outpt Exam: alert, oriented x 3, clear to auscultation bilaterally and regular rate & rhythm Cardiac Studies: No Data to Display
--- NOTE | 2022-02-18 10:06 | P.HPUD_ITS ---
Surgery/Procedure H&P Update DATE OF PROCEDURE: February 18, 2022 DATE H&P PERFORMED: 01/27/22 H&P UPDATE INFORMATION: I have reviewed H&P completed within last 30 days, I have examined patient prior to procedure, No changes to prior documentation and H&P is in [facility] EMR on date indicated PREOP DIAGNOSIS: Primary osteoarthritis left hip PLANNED PROCEDURE: Operation Date: 02/18/22 10:30 Proposed Procedures p LEFT TOTAL HIP ARTHROPLASTY 16074,M16.9(Left) - Mone Balbuena MD Related Problem List Diagnoses (1) Osteoarthritis of left hip: Qualifiers: Osteoarthritis type: primary Qualified Code(s): M16.12 - Unilateral primary osteoarthritis, left hip
[2022-02-18] MEDS: ceFAZolin 2,000 MG in sodium chloride 0.9% (plus) 50 ML 100 MG IV ×2 (10:11→17:23)
[2022-02-18] MEDS: vancomycin 1,000 MG SDV 1000 MG XX (11:32)
[2022-02-18] MEDS: ceFAZolin 1,000 mg SDV 1000 MG IRRIGATION (11:33)
[2022-02-18] MEDS: tranexamic acid 1,000 mg/10mL SDV 1000 MG IV (11:33)
[2022-02-18] MEDS: fentaNYL 50 mcg/mL INJ 2mL IVP ×2 (13:39→15:17)
--- NOTE | 2022-02-18 13:43 | XRR_ITS ---
PROCEDURE INFORMATION: Exam: XR Left Hip Exam date and time: 02/18/2022 1:52 PM Age: 61 years old Clinical indication: Device placement; Other: Hip replacement post op; Prior surgery; Surgery date: Post-operative (0-2 days); Additional info: Low ap pelvis TECHNIQUE: Imaging protocol: Radiologic exam of the Left hip. Views: 1 view hip with pelvis when performed. COMPARISON: CR XR hip LT 2-3V wo/w pel* [id number] 01/27/2022 9:29 AM FINDINGS: Bones/joints: Bilateral hip arthroplasty changes in place. Soft tissues: Unremarkable. XR/XR hip LT 1V wo/w pel [id number] IMPRESSION: Bilateral hip arthroplasty changes in place.
--- NOTE | 2022-02-18 14:30 | PM.OP ---
Operative Report Date of procedure: February 18, 2022 Pre-op diagnosis: Primary osteoarthritis left hip Post-op diagnosis: Primary osteoarthritis left hip Post-op findings: Adduction contracture, severe degenerative osteoarthritis of the left hip with very limited range of motion. Procedure done: Left total hip arthroplasty Abductor tenotomy prior to commencement of the left total hip arthroplasty Implants: The [place] total hip system: Size 56 solid back acetabular Trident II Tritanium shell with F alpha code, MDM cementless liner size 46 mm inner diameter by F alpha code, size 10 Accolade two 127 degree neck angle hip stem with a 40 mm neck length, a christianity X3 insert for ADM/MDM, and a Biolox ceramic V40 28 mm outer diameter by -2.7 mm neck length Specimens removed/disposition: Femoral head, disposed of Surgeon: Mone Balbuena Quality Improvement Consultant: [facility] operating room technicians Anesthesia: MAC (With spinal, ASA 3) Estimated blood loss (mL): 200 IV fluids (mL): 1,600 Urine output (mL): 600 Complications: None Findings: Severe degenerative osteoarthritis of the left hip with severe abduction contracture requiring abductor tenotomy prior to commencement of the left total hip arthroplasty Condition: stable Disposition: PACU (Then to floor for postoperative rehabilitation and pain management) Brief History: This 61 year old female patient presented to my office initially on January 27 for an evaluation of her left hip pain. She denied any prior injuries. She states that she has had pain in her hip for 10 years now. She states that her pain is reproduced by laying down. The patient denied significant pain with walking, but she did have aching in the groin and in the buttocks. She states that her pain radiates down the back of her legs. She denies any relieving factors today. She has had right total hip arthroplasty successfully, although it does appear slightly shorter than the opposite leg. She has severe crepitation with any range of motion and discomfort and pain with range of motion. Procedure: Patient was brought to the operating theater. She was transferred to the operating room table and subsequently administered a spinal anesthesia, ASA 3. Following administration of adequate anesthesia, the patient was placed in full lateral position and held in position with a pegboard. Also, the patient had minimal movement in her left lower extremity preoperatively. The patient's left lower extremity was then prepped and draped in usual fashion utilizing DuraPrep. It was draped free. Following prepping and draping, a surgical pause was performed. At the time of surgical pause, we identified the site and side of surgery. We also identified the patient and preoperative surgical markings. Confirmation was made of equipment availability. Additionally, the patient's preoperative IV antibiotic, Ancef 2 g, was confirmed as being given in a timely fashion and being the appropriate antibiotic. The patient also had 1 g of TXA preoperatively and an additional dose postoperatively. Prior to prepping and draping, evaluation of the hip demonstrated that there was a significant flexion adduction contracture. This was so severe, we were unable to appropriately range the hip or even prep. Secondary to this, an abductor tenotomy was accomplished to improve stability and range of motion of the hip. Following this, the hip was draped out and subsequently prepped as noted above. It was draped free. We then had an additional surgical pause, and an incision was made centering over the patient's greater trochanter continuing proximally and distally as necessary to allow access to the hip joint. Dissection continued through skin and soft tissues using a scalpel, and hemostasis was obtained using electrocautery. The tensor fascia mahogany was identified and incised longitudinally. Sciatic nerve was identified and protected throughout the surgical procedure. A Charnley U retractor was placed after the tensor fascia mahogany had been incised longitudinally, and the sciatic nerve had been identified. The hip was internally rotated, and the piriformis muscle was identified and tagged. Piriformis muscle along with the remaining short external rotators were then incised from the posterior aspect of the hip joint. These were retracted posteriorly. The capsule was entered in a T-type fashion with the edges being tagged, and subsequently the hip was dislocated. Following hip dislocation, a femoral neck osteotomy was accomplished in the appropriate position. The head was removed and measured. We then evaluated the acetabulum. The femur was retracted anteriorly. Soft tissues were retracted and the labrum was removed. We then began reaming. Once the femoral head was removed, there was noted to be significant loss of cartilage over the head and over the acetabulum. We reamed to a size 54 mm to allow for a size 56 mm acetabular shell. The rim of the acetabulum was touched with a size 55 reamer. The acetabulum was impacted into position. The cup was noted to seat nicely and had good fixation upon impact. After the acetabular component was impacted into position, the MDM cementless liner was placed. Care was taken to assure appropriate position prior to impaction of this liner. The liner was noted to seat nicely without any soft tissue impingement. Attention was directed to the proximal femur. The proximal femur was lifted out of the wound. A canal finder was passed after the box chisel. The reamer was used to lateralize. We then began broaching. We broached sequentially initially to a size 9 stem when a trial reduction was accomplished. Following this trial reduction, we increased to a size 10. The size 10 Accolade 2 has a 40 mm neck length with a 127 degree neck angle. A trial reduction was accomplished with a +0 mm offset femoral head, and this was followed by a trial with a -2.7 mm offset femoral head. Secondary to the preoperative contractures, the hip was noted to be tight. We had similar stability with the -2.7 mm offset as we did with a +0 mm offset, and it was noted that the patient's opposite right total hip arthroplasty had shortened that leg relative to the left leg. Therefore, we chose the -2.7 mm offset. With this in place, leg lengths were felt to be essentially equal. Additionally, we were able to place the hip and external rotation without dislocation. Toe hang did not result in dislocation. With 90 degrees of flexion and 60 degrees of internal rotation, the hip remained stable. Therefore, trial components were removed after the hip was dislocated. The Accolade II 127 degree neck angle hip stem size 10 was impacted into position uneventfully. It was noted to have excellent fit and fill. Following this, on the back table, the christianity ADM/MDM insert and the -2.7 mm x 28 mm outer diameter ceramic V40 femoral head were impacted together. This construct was impacted onto the proximal portion of the femoral stem. Following this impaction, it was pulled upon to assure that it was completely seated. Hip was again placed through range of motion and the above stabilities were noted. The wound was copiously irrigated with 20 mL of Betadine and 500 mL of normal saline mixed together. Subsequently, we suctioned this out and irrigated the wound copiously with lactated Ringer's. At this time, with all components in appropriate position, the hip was reduced. Following reduction of the prosthesis once again, we confirmed the stability of the hip. Leg lengths were also felt to be satisfactory. Being satisfied with the prosthesis, attention was directed to closure. Closure was accomplished with 0 Vicryl in the capsular tissues. Piriformis was reattached with 0 Vicryl as well. Tensor fascia mahogany was closed with 0 Vicryl in an interrupted fashion. The subcutaneous tissues were closed with 2-0 Monocryl. Vancomycin powder and a Gelfoam thrombin mixture was placed into the wound as well. The skin was closed with a running 3-0 Monocryl followed by Dermabond Jania and Cynthia. The patient was placed in an abduction pillow. She was returned the Recovery Room in a satisfactory condition and will be discharged to the floor for postoperative rehabilitation and pain management. There were no complications. Related Problem List Diagnoses (1) Osteoarthritis of left hip:
--- NOTE | 2022-02-18 14:35 | SUR.EXTENDED ---
14:18 RECEIVED PT FROM PACU STAFF. A+O X 3. VENTILATING WELL.DENIES DYSPNEA. TOLERATING FLUIDS WELL. STATES MILD HIP DISCOMFORT. GOOD LEFT PEDAL PULSE. ACTIVE WARMING STARTED. AT BEDSIDE.
--- NOTE | 2022-02-18 15:03 | SUR.EXTENDED ---
15:00 RESTING COMFORTABLY WITH EYES CLOSED.
--- NOTE | 2022-02-18 15:06 | ANE.PACU2 ---
Inpatient post-anesthesia follow up: Airway intact: Yes Vital signs: Temperature 97.0 F Pulse Rate 80 Respiratory Rate 118 Blood Pressure 114/67 Pulse Oximetry 96 Oxygen Delivery Me thod Room Air Oxygen Flow Rate 6 Fraction of Inspir ed Oxygen Hydration adequate: Yes Nausea and vomiting: No Pain level: 2 Mental status: Baseline
--- NOTE | 2022-02-18 15:39 | SUR.EXTENDED ---
15:25 MEDICATED FOR INCREASING HIP PAIN. PLACED ON O2 VIA NASAL CANNULAR.
--- NOTE | 2022-02-18 16:44 | SUR.EXTENDED ---
16:22 report given to BOY BOOKER. PT TRANSFERRED TO 251 BED 1 IN HOSPITAL BED.
[2022-02-18] MEDS: chlorhexidine gluconate 0.12% Btl 473 mL 30 ML MUCOUS MEM ×2 (17:11→20:44)
[2022-02-18] MEDS: calcium carbonate 500 mg Chew Tablet 1000 MG PO (17:12)
[2022-02-18] MEDS: oxyCODONE 5 mg IR Tab/Cap PO ×2 (17:12→23:20)
[2022-02-18] MEDS: iron polysaccharide complex 150 mg Capsule PO (17:12)
[2022-02-18] MEDS: sennosides-docusate Tablet 2 TAB PO (17:22)
[2022-02-18] MEDS: CELEcoxib 200 mg Capsule PO (20:44)
[2022-02-19 00:54] VITALS: BP 113/55; PULSE 92; RESP 18; TEMP 36.7; O2SAT 97
[2022-02-19] MEDS: acetaminophen 1,000 MG/100 ML PIGGYBACK 400 MG IV ×2 (00:55→08:50)
[2022-02-19] MEDS: sodium chloride 0.9% 1,000 ML 30 ML IV (00:56)
[2022-02-19] MEDS: ceFAZolin 2,000 MG in sodium chloride 0.9% (plus) 50 ML 100 MG IV ×2 (01:30→08:51)
[2022-02-19 02:52] LABS: Basophils % 0.5 %; Eosinophils # 0.1 10^3/uL (0.0-0.8); Eosinophils % 1.5 %; Hematocrit 32.8 % (37.0-47.0); Hemoglobin 10.1 g/dL (11.5-15.3); Lymphocytes # 1.1 10^3/uL (0.8-4.8); Lymphocytes % 17.9 %; Mean Corpuscular HGB Conc 30.8 g/dL (30.0-36.0); Mean Corpuscular Hemoglobin 27.5 pg (28.0-34.0); Mean Corpuscular Volume 89.4 fl (81-99); Monocytes # 0.6 10^3/uL (0.2-0.9); Neutrophils % 69.8 %; Nucleated Red Blood Cells % 0 %; Platelet Count 166 10^3/cmm (130-400); Red Blood Count 3.67 10^6/uL (4.1-5.3); Red Cell Distribution Width 12.9 % (12.1-15.1)
[2022-02-19 03:16] LABS: Anion Gap 10.7 (5-19); Blood Urea Nitrogen 11 mg/dL (8-23); Calcium 7.8 mg/dL (8.5-10.5); Carbon Dioxide 26 mmol/L (22-29); Chloride 105 mmol/L (98-107); Glomerular Filtration Rate 161.2 mL/min (90-130); Glucose 118 mg/dL (65-115); Osmolality Calculated 284 mOsm/kg (285-295); Potassium 4.7 mmol/L (3.5-5.1); Sodium 137 mmol/L (136-145)
[2022-02-19 03:31] LABS: Creatinine Clr Calc Pharmacy 148.9797
[2022-02-19 05:00] VITALS: BP 93/54; PULSE 74; RESP 18; TEMP 36.7; O2SAT 98
[2022-02-19 06:14] VITALS: RESP 18
[2022-02-19] MEDS: oxyCODONE 5 mg IR Tab/Cap PO (06:14)
[2022-02-19 07:33] VITALS: BP 102/61; PULSE 76; RESP 16; TEMP 36.8; O2SAT 98
[2022-02-19] MEDS: iron polysaccharide complex 150 mg Capsule PO (08:48)
[2022-02-19] MEDS: aspirin 325 mg EC Tablet PO (08:48)
[2022-02-19] MEDS: calcium carbonate 500 mg Chew Tablet 1000 MG PO (08:49)
[2022-02-19] MEDS: multivitamin therapeutic Tablet 1 TAB PO (08:49)
[2022-02-19] MEDS: famotidine 20 mg Tablet PO (08:49)
[2022-02-19] MEDS: chlorhexidine gluconate 0.12% Btl 473 mL 30 ML MUCOUS MEM ×2 (08:49→12:10)
[2022-02-19] MEDS: CELEcoxib 200 mg Capsule PO (08:49)
[2022-02-19] MEDS: sennosides-docusate Tablet 2 TAB PO (08:49)
[2022-02-19] MEDS: cholecalciferol (vitamin D3) 1,000 unit Tablet 1000 UNIT PO (08:49)
[2022-02-19] MEDS: mupirocin oint 22 gm 1 APPLIC NASAL (08:50)
[2022-02-19 11:13] VITALS: BP 126/74; PULSE 84; RESP 18; TEMP 36.7; O2SAT 96
--- NOTE | 2022-02-19 11:33 | PC.CHAP ---
Pastoral Care Encounter/Spiritual Assessment Type of Contact [] Declined map colorer visit [] Patient/Family/Request visit [] Outpatient visit [] Follow-up visit [] Physician referral [] Code/Alert [x] Routine visit [] Staff referral [] Actively dying [] Patient sleeping [] Family support [] [] Out of room [] Palliative care [] [] Receiving care in room [] Pre-surgical visit [] Trauma [] Long length of stay [] ICU visit [] Other: Relational/Emotional Strength [x] Patient feels connected with others/family/visitors/staff [] Distress [] Loneliness/isolation [] Abandonment Spirituality of Patient [x] Person of Karissa [x] Attends Adventism of their Kairssa [x] Believes in Prayer [] Reads Bible or Judaism materials [] There are Spiritual issues to be addressed Motorcycle Repairer Interventions [x] Prayer [x] Active listening [x] Non-anxious presence [] Spiritual/emotional support [] Crisis/trauma care [] Spiritual counseling [] Bereavement support [] Provided bereavement packet [] Provided Bible/devotional materials [] Provided toy/stuffed animal, coloring book to patient or family member [] Provided Communion [] Anointing/[place] [] Salvation [x] Completed spiritual assessment [] Other: Impact on Illness or Injury [] Angry [] Fearful [] Anxious [] Often cries [] Exhaustion [] Unable to work [] Unable to attend sikh [] Unable to walk/stand [] Unable to read [] Unable to drive [] Unable to eat/drink [] Unable to sleep [] Unable to be with family [] Patient intubated [] Other: Summary Time spent with patient 10 min
[2022-02-19 13:45] VITALS: BP 126/74; PULSE 84; RESP 18; TEMP 36.7; O2SAT 96
--- NOTE | 2022-02-19 14:20 | P.DS_ITS ---
Discharge Providers Date of Admission: 02/18/22 16:22 Date of Discharge: February 19, 2022 Attending Provider at Admission: Mone Balbuena MD Attending Provider at Discharge: Mone Balbuena MD Primary Care Provider: SRINIVASA Brady Diagnoses at Discharge Discharge Diagnosis (1) Status post total left knee replacement not using cement: Status: Acute Permanent problem details: Date of procedure: February 18, 2022 Diagnosis: Primary osteoarthritis left hip with adduction contracture Post-op findings: Adduction contracture, severe degenerative osteoarthritis of the left hip with very limited range of motion. Procedure done: Left total hip arthroplasty. Abductor tenotomy prior to commencement of the left total hip arthroplasty Implants: [employer] total hip system: Size 56 solid back acetabular Trident II Tritanium shell with F alpha code, MDM cementless liner size 46 mm inner diameter by F alpha code, size 10 Accolade two 127 degree neck angle hip stem with a 40 mm neck length, a uatsdin X3 insert for ADM/MDM, and a [employer] ceramic V40 28 mm outer diameter by -2.7 mm neck length (2) Osteoarthritis of left hip: Status: Acute Qualifiers: Osteoarthritis type: primary Qualified Code(s): M16.12 - Unilateral primary osteoarthritis, left hip Reason for Visit Reason for Visit: Brief History: This 61 year old female patient presented to my office initially on January 27 for an evaluation of her left hip pain. She denied any prior injuries. She states that she has had pain in her hip for 10 years now. She states that her pain is reproduced by laying down.? The patient denied significant pain with walking, but she did have aching in the groin and in the buttocks.? She states that her pain radiates down the back of her legs. She denies any relieving factors today.? She has had right total hip arthroplasty successfully, although it does appear slightly shorter than the opposite leg.? She has severe crepitation with any range of motion and discomfort and pain with range of motion. Physical Exam 2 Const: COMMON NORMALS: no acute distress, average body habitus, patient oriented x3 and alert GENERAL APPEARANCE: cooperative and comfortable ORIENTATION/CONSCIOUSNESS: Yes awake HENMT: COMMON NORMALS: normocephalic and atraumatic HEAD & SCALP: normocephalic and atraumatic Eye: GENERAL EYE: appearance normal, both eyes and all related structures Chest: COMMONS NORMALS: normal inspection of the chest Resp: COMMON NORMALS: normal respiratory effort EFFORT & INSPECTION: Yes able to speak in complete sentences and Yes symmetric chest movement Extremity: LEFT LOWER EXTREMITY: Yes hip joint ( able to move actively) Left hip: Yes inspection (Dressing left in place), Yes ROM (Not evaluated), Yes neurovascular exam (Intact distally) and Yes other (No evidence of DVT) Neuro: COMMON NORMALS: patient oriented x3 SENSORIUM/ORIENTATION: Yes alert Psych: COMMON NORMALS: mental status grossly normal APPEARANCE: Yes grossly normal ATTITUDE: Yes calm and Yes engaged ATTENTION/CONCENTRATION: Yes attention grossly intact Skin: COMMON NORMALS: no rashes or lesions noted GENERAL SKIN EXAM: no rashes or lesions noted Urinary Catheter Management: Kwon: Cath Placed During This Visit: yes, but has since been removed by the nurse Reason for Continuing Indwelling Catheter: Decision to DC Catheter Urinary Catheter Date of Insertion: 02/18/22 Urinary Catheter Time of Insertion: 10:25 Date Urinary Catheter Removed: 02/19/22 Time Urinary Catheter Discontinued: 06:18 Discharge Data Studies Completed and Pending Completed Studies During Hospitalization Category Date Time Status XR hip LT 1V wo/w pel 02019 Routine Exams 02/18/22 13:43 Completed Radiology Impressions Hip X-Ray 02/18/22 13:43 IMPRESSION: Bilateral hip arthroplasty changes in place. Laboratory Results WBC 6.0 10^3/uL (4.0-10.0) 02/19/22 02:06 RBC 3.67 10^6/uL (4.1-5.3) L 02/19/22 02:06 Hgb 10.1 g/dL (11.5-15.3) L 02/19/22 02:06 Hct 32.8 % (37.0-47.0) L 02/19/22 02:06 MCV 89.4 fl (81-99) 02/19/22 02:06 MCH 27.5 pg (28.0-34.0) L 02/19/22 02:06 MCHC 30.8 g/dL (30.0-36.0) 02/19/22 02:06 RDW 12.9 % (12.1-15.1) 02/19/22 02:06 Plt Count 166 10^3/cmm (130-400) 02/19/22 02:06 MPV 11.0 fL (7.4-10.4) H 02/19/22 02:06 Neut % (Auto) 69.8 % 02/19/22 02:06 Lymph % (Auto) 17.9 % 02/19/22 02:06 [place] % (Auto) 10.0 % 02/19/22 02:06 Eos % (Auto) 1.5 % 02/19/22 02:06 Baso % (Auto) 0.5 % 02/19/22 02:06 Neut # (Auto) 4.20 10^3/uL (1.8-7.7) 02/19/22 02:06 Lymph # (Auto) 1.1 10^3/uL (0.8-4.8) 02/19/22 02:06 [place] # (Auto) 0.6 10^3/uL (0.2-0.9) 02/19/22 02:06 Eos # (Auto) 0.1 10^3/uL (0.0-0.8) 02/19/22 02:06 Baso # (Auto) 0.0 10^3/uL (0.0-0.1) 02/19/22 02:06 Nucleated RBC % (auto) 0 % 02/19/22 02:06 Nucleated RBCs # 0.0 /100WBC 02/19/22 02:06 Sodium 137 mmol/L (136-145) 02/19/22 02:06 Potassium 4.7 mmol/L (3.5-5.1) 02/19/22 02:06 Chloride 105 mmol/L (98-107) 02/19/22 02:06 Carbon Dioxide 26 mmol/L (22-29) 02/19/22 02:06 Anion Gap 10.7 (5-19) 02/19/22 02:06 BUN 11 mg/dL (8-23) 02/19/22 02:06 Creatinine 0.4 mg/dL (0.5-0.9) L 02/19/22 02:06 GFR Calculation 161.2 mL/min (90-130) H 02/19/22 02:06 Glucose 118 mg/dL (65-115) H 02/19/22 02:06 Calculated Osmolality 284 mOsm/kg (285-295) L 02/19/22 02:06 Calcium 7.8 mg/dL (8.5-10.5) L 02/19/22 02:06 Total Bilirubin 0.4 mg/dL (0.15-1.2) 02/14/22 11:36 AST 16 U/L (0-32) 02/14/22 11:36 ALT 14 U/L (0-33) 02/14/22 11:36 Alkaline Phosphatase 110 IU/L (35-105) H 02/14/22 11:36 Total Protein 6.9 g/dL (6.6-8.7) 02/14/22 11:36 Albumin 4.4 g/dL (3.5-5.2) 02/14/22 11:36 Globulin 2.5 g/dL (1.3-4.6) 02/14/22 11:36 Urine Color Yellow (Yellow) 02/14/22 11:51 Urine Appearance Clear (CLEAR) 02/14/22 11:51 Urine pH 9 (5-7) H 02/14/22 11:51 Ur Specific Platinum 1.015 (1.005-1.030) 02/14/22 11:51 Urine Protein Neg (Negative) 02/14/22 11:51 Urine Glucose (UA) Norm (Normal) 02/14/22 11:51 Urine Ketones Negative (Negative) 02/14/22 11:51 Urine Blood Neg (Negative) 02/14/22 11:51 Urine Nitrate Negative (Negative) 02/14/22 11:51 Urine Bilirubin Neg (Negative) 02/14/22 11:51 Prot Sulfosalicylic Acd Negative (Negative) 02/14/22 11:51 Urine Urobilinogen Norm mg/dL (Negative) 02/14/22 11:51 Ur Leukocyte Esterase Negative (Negative) 02/14/22 11:51 Vitals Last Vital Signs Temp 98.0 F 02/19/22 13:45 Pulse 84 02/19/22 13:45 Resp 18 02/19/22 13:45 BP 126/74 02/19/22 13:45 Pulse Ox 96 02/19/22 13:45 O2 Del Method 02/19/22 11:13 O2 Flow Rate 2 02/18/22 20:00 Discharge Plan Discharge Patient Disposition: Home Health Service Condition: Stable Prescriptions: New celecoxib 200 mg Capsule 200 mg PO 1XD 30 Days Qty: 30 0RF acetaminophen 500 mg Tablet 1,000 mg PO Q8H 15 Days Qty: 90 0RF aspirin 325 mg Tablet,Delayed Release (Dr/Ec) 325 mg PO DAILY 30 Days Qty: 30 0RF oxycodone 5 mg Tablet 5 mg PO Q4H PRN (Reason: Moderate Pain) 7 Days Qty: 30 0RF Continued famotidine 20 mg tablet 20 mg PO DAILY Qty: 90 1RF albuterol sulfate [ProAir HFA] 90 mcg/actuation HFA aerosol inhaler 2 puff inhalation Q6H PRN (Reason: shortness of breath or wheezing) Qty: 6.7 2RF Held naproxen sodium [Aleve] 220 mg Tablet 220 mg PO Q12H PRN (Reason: Pain) Hold Instructions: Resume on 03/21/22. Following initial postoperative Celebrex. Do not take together. Rx Instructions: medication entered on 06/10/21 when pt was here-pt unable to verify medications Discharge Orders: Discharge Order (Routine); Ordered 02/19/22 Ordered By: Mone Balbuena Other Ambulatory Orders: DME: Walker (Order) Location: None Selected Ordered By: Mone Balbuena Referrals: Mone Balbuena MD [Physician] - 03/03/22 1:30 pm (You will be seen by Lior, nurse practitioner. He will see me approximately 2 weeks after with x-rays.) Discharge Diet: Advance as tolerated and Usual diet Discharge Activity: Increase activity as tolerated, Limit activity as instructed and Use walker/crutches as instructed Patient Instructions: Oxycodone/Acetaminophen (By mouth), Aspirin (By mouth), Celecoxib (By mouth), Precautions after Total Joint Replacement Surgery (DC) Activity Restrictions/Additional Instructions: Posterior hip precautions. Weight-bear as tolerated. Use walker as instructed per PT. Gait training per physical therapy. Discharge Attestations Time Spent in Discharge Care*: greater than 30 min Specific Discharge Activities: documenting/other paperwork and evaluating patient/reviewing data Quality Metrics Clinical Quality Measures [ No reported AMI, CVA or VTE this stay] Coding Level of Care Code Acute Chg FW DC note Diagnoses Status post total left knee replacement not using cement Z96.652 Osteoarthritis of left hip M16.12 Osteoarthritis type: primary
== END 2022-02-19 14:30 | disposition home health service (06) ==
LOC: MEDSURG 16:22
PROVIDERS: Admitting Provider Specialist; PCP Nurse Practitioner Family; Visit Provider Specialist
PROC: (CPT 27130; principal; 2022-02-18 10:10)
DX: M16.12 Unilateral primary osteoarthritis, left hip (principal); J44.9 Chronic obstructive pulmonary disease, unspecified; K21.9 Gastro-esophageal reflux disease without esophagitis
CPT/HCPCS: 27130; 36415; 51702; 73501; 80048; 80053; 81003; 85025; 97110; 97116; 97161; 97165; 97535; C1776; G0378; J0690; J2405; J2704; J3010; J3370; J3490; J7030

== ENCOUNTER → 2022-03-03 13:43 | Outpatient (BNVA) | payer MEDICAID, SELFPAY | PROVIDERS: PCP Nurse Practitioner Family; Visit Provider Nurse Practitioner Family | DX: Z96.652 Presence of left artificial knee joint (principal); Z98.890 Other specified postprocedural states | CPT/HCPCS: 73502; 99024 ==

== ENCOUNTER → 2022-03-31 13:16 | Outpatient (BNVA) | payer MEDICAID, SELFPAY | PROVIDERS: PCP Nurse Practitioner Family; Visit Provider Nurse Practitioner Family | DX: Z98.890 Other specified postprocedural states (principal) | CPT/HCPCS: 73502; 99024 ==

== ENCOUNTER 2022-09-21 14:09 | Inpatient (IN) | payer MEDICAID, SELFPAY ==
[2022-09-21] VITALS (10 sets, daily range): BP systolic 119–140; BP diastolic 67–85; PULSE 92–127; RESP 12–22; TEMP 36.8–36.9; O2SAT 92–95; BMI 23.4; BMI 26.6
--- NOTE | 2022-09-21 14:36 | PC.PHAR ---
pt states takes no rx medications-states just takes tylenlol prn and has a inhaler prn
--- NOTE | 2022-09-21 14:51 | ED_ITS ---
Documented by User: Josue Maher DO 09/21/22 15:02 HPI - SOB/Dyspnea General: Chief Complaint: Shortness of Breath/Dyspnea Stated Complaint: RESP DISTRESS Time Seen by Provider: 09/21/22 14:34 History of Present Illness: HPI Narrative: Patient presents to the ER by EMS with complaints of shortness of breath, tachycardia, headache, nausea vomiting diarrhea right lower quadrant abdominal pain for the past 4 days. Patient says she has oxygen at home and should be on it but only uses it occasionally. Patient has used it today but it has not helped upon EMS arrival patient was satting 86% EMS gave her at least 1 breathing treatment steroids and put her on 3 L of oxygen for the ride here. Pertinent past history: COPD Onset (ago): day(s) Context: medication noncompliance Timing: constant and progressively worsening Severity: moderate Exacerbating factors: nothing Relieving factors: nothing Known history of: COPD Associated symptoms: Reports abdominal pain, fever(s), nausea and vomiting; Deny chest pain, extremity pain, palpitations, polydipsia or polyuria Treatment prior to arrival: oxygen, bronchodilator and other (Steroids) Review of Systems General: Reports: 10 or more systems reviewed and unremarkable except in HPI and below Const: Reports: fever(s), chills and body aches Eyes: Denies: change in vision or blurry vision ENMT: Denies: throat pain or odynophagia Card: Denies: chest pain, palpitations or irregular heart rhythm Resp: Reports: dyspnea GI: Reports: abdominal pain, nausea, vomiting and diarrhea : Denies: flank pain, difficulty voiding or dysuria Musc: Denies: neck pain, back pain or extremity pain Skin/Breast: Denies: rash, pruritus, erythema or photosensitivity Neuro: Reports: headache(s); Denies: numbness in extremities or weakness in extremities Psych: Denies: anxiety, depression, mood swings or panic attacks Endo: Denies: polyuria, polydipsia or tired all the time Bairon/Lymph: Denies: easy bruising, easy bleeding or petechiae All/Imm: Denies: urticaria, throat swelling, tongue swelling or facial swelling PFSH ED PFSH: Medical History COPD (chronic obstructive pulmonary disease) Family History Mother Dementia Father No problems noted. Social History Smoking and tobacco status: never smoked Physical Exam Const: COMMON NORMALS: no acute distress, average body habitus, patient oriented x3, no limitations, healthy appearing and alert HENMT: COMMON NORMALS: normocephalic, atraumatic and hearing grossly normal bilaterally HEAD & SCALP: normocephalic and atraumatic Eye: COMMON NORMALS: EOMs intact bilaterally and conjunctivae normal CONJUNCTIVA: Yes conjunctivae normal Neck/C-Spine: COMMON NORMALS: full ROM, no lymphadenopathy, supple and Thyroid normal THYROID: Thyroid normal Lymph: LYMPHATIC: no lymphadenopathy noted Chest: COMMONS NORMALS: normal inspection of the chest Resp: COMMON NORMALS: clear to auscultation bilaterally EFFORT & INSPEC TION: Yes symmetric chest movement, Yes tachypneic (Minimal) and Yes respiratory distress (Minimal) AUSCULTATION: clear to auscultation bilaterally and breath sounds absent Cardio: COMMON NORMALS: regular rhythm, S1 normal heart sound present and S2 normal heart sound present JUGULAR VENOUS DISTENTION: no JVD RATE: tachycardic RHYTHM: regular rhythm HEART SOUNDS: S1 normal heart sound present, S2 normal heart sound present and Clicking heart sound present GI: COMMON NORMALS: Soft to palpation and No hepatosplenomegaly present PALPATION: Yes Soft to palpation, Yes Tenderness to palpation present (GI) Details: RLQ, Yes No hepatosplenomegaly present, No Ascites present and No Rebound tenderness present : COMMON NORMALS: Yes no CVA tenderness BLADDER/KIDNEY EXAM: Yes no CVA tenderness Back/Pelvis: COMMON NORMALS: no CVA tenderness Extremity: COMMON NORMALS: normal to inspection Neuro: COMMON NORMALS: patient oriented x3, CN's II-XII intact bilaterally, moves all extremities, no focal motor deficits and no sensory deficits noted SENSORIUM/ORIENTATION: Yes alert Psych: COMMON NORMALS: mental status grossly normal, Normal thought process present, cooperative, normal affect and speech normal SPEECH: Yes normal speech THOUGHT PROCESS: Normal thought process present Course Vital Signs: Vital signs: Vital Signs Temperature 98.4 F 09/21/22 14:15 Pulse Rate 119 H 09/21/22 18:57 Respiratory Rate 22 H 09/21/22 18:43 Blood Pressure 119/85 09/21/22 14:22 Pulse Oximetry 92 09/21/22 18:43 Oxygen Delivery Me thod 09/21/22 18:43 Oxygen Flow Rate 3 09/21/22 18:43 MDM - SOB/Dyspnea Lab Data 09/21/22 15:32 09/21/22 15:32 Labs/Radiology: Radiology Impressions Chest/Abdomen/Pelvis CT 09/21/22 14:53 IMPRESSION: 1. Mild nonspecific mediastinal adenopathy. 2. Moderate pulmonary emphysema. No acute lung findings otherwise. 3. Limited assessment for pulmonary embolism due to non CTA protocol. IMPRESSION: 1. Hepatic steatosis without cirrhosis. 2. Probable nonocclusive DVT (?vs artifacts) in the right femoral vein as described. Correlation with ultrasound/duplex imaging should be obtained. 3. No acute abdominopelvic findings otherwise. ADDENDUM: 09/21/[id number] Maher was notified by phone 6:25 p.m. Eastern time. Venous Duplex 09/21/22 17:26 IMPRESSION: 1. No evidence of deep vein thrombosis. 2. Intraluminal hypodensity on the recent CT therefore likely represented artifacts. Laboratory Results WBC 9.7 10^3/uL (4.0-10.0) 09/21/22 15:32 RBC 4.56 10^6/uL (4.1-5.3) 09/21/22 15:32 Hgb 12.7 g/dL (11.5-15.3) 09/21/22 15:32 Hct 40.1 % (37.0-47.0) 09/21/22 15:32 MCV 87.9 fl (81-99) 09/21/22 15:32 MCH 27.9 pg (28.0-34.0) L 09/21/22 15:32 MCHC 31.7 g/dL (30.0-36.0) 09/21/22 15:32 RDW 13.5 % (12.1-15.1) 09/21/22 15:32 Plt Count 163 10^3/cmm (130-400) 09/21/22 15:32 MPV 10.4 fL (7.4-10.4) 09/21/22 15:32 Neut % (Auto) 92.2 % 09/21/22 15: Lymph % (Auto) 3.1 % 09/21/22 15: Latimer % (Auto) 3.9 % 09/21/22 15: Eos % (Auto) 0.0 % 09/21/22 15: Baso % (Auto) 0.2 % 09/21/22 15: Neut # (Auto) 8.98 10^3/uL (1.8-7.7) H 09/21/22 15: Lymph # (Auto) 0.3 10^3/uL (0.8-4.8) L 09/21/22 15: Latimer # (Auto) 0.4 10^3/uL (0.2-0.9) 09/21/22: Eos # (Auto) 0.0 10^3/uL (0.0-0.8) 09/21/22: Baso # (Auto) 0.0 10^3/uL (0.0-0.1) 09/21/22: Nucleated RBC % (auto) 0 % 09/21/22: Nucleated RBCs # 0.0 /100WBC 09/21/22 15:32 Specimen Type Arterial 09/21/22 15:07 Sample Site Brachial, left 09/21/22 15:07 ABG pH 7.44 (7.35-7.45) 09/21/22 15:07 ABG pCO2 38.6 mmHg (35-45) 09/21/22 15:07 ABG pO2 75.2 mmHg (80.0-100.0) L 09/21/22 15:07 ABG HCO3 26.0 mmol/L (22-26) 09/21/22 15:07 ABG Base Excess 1.7 mmol/L (-2.0-2.0) 09/21/22 15:07 Willi Test Pos 09/21/22 15:07 Hematocrit 40.0 % (37-47) 09/21/22 15:07 Hgb O2 Saturation 95.0 % (95-100) 09/21/22 15:07 Carboxyhemoglobin 1.1 %THgb (0.4-20.1) 09/21/22 15:07 Methemoglobin 0.4 % (0.4-1.5) 09/21/22 15:07 Total Hemoglobin 13.0 g/dL (12-16) 09/21/22 15:07 O2 Delivery Device Nc 09/21/22 15:07 O2 Liters/Min 3.0 % 09/21/22 15:07 Travel Med Surg Rn ID Cak 09/21/22 15:07 Sodium 131 mmol/L (136-145) L 09/21/22 15:32 Potassium 3.6 mmol/L (3.5-5.1) 09/21/22 15:32 Chloride 95 mmol/L (98-107) L 09/21/22 15:32 Carbon Dioxide 22 mmol/L (22-29) 09/21/22 15:32 Anion Gap 17.6 (5-19) 09/21/22 15:32 BUN 12 mg/dL (8-23) 09/21/22 15:32 Creatinine 0.4 mg/dL (0.5-0.9) L 09/21/22 15:32 GFR Calculation 160.7 mL/min (90-130) H 09/21/22 15:32 Glucose 156 mg/dL (65-115) H 09/21/22 15:32 Calculated Osmolality 275 mOsm/kg (285-295) L 09/21/22 15:32 Calcium 8.2 mg/dL (8.5-10.5) L 09/21/22 15:32 Magnesium 1.8 mg/dL (1.7-2.3) 09/21/22 15:32 Total Bilirubin 0.6 mg/dL (0.15-1.2) 09/21/22 15:32 AST 22 U/L (0-32) 09/21/22 15:32 ALT 15 U/L (0-33) 09/21/22 15:32 Alkaline Phosphatase 85 U/L (35-105) 09/21/22 15:32 NT-Pro-B Natriuret Pep 387 pg/mL (0-125) H 09/21/22 15:32 Total Protein 6.6 g/dL (6.6-8.7) 09/21/22 15:32 Albumin 3.3 g/dL (3.5-5.2) L 09/21/22 15:32 Globulin 3.3 g/dL (1.3-4.6) 09/21/22 15:32 Nasal Influ A H1 2009 PCR Not detected (NOT DETECT) 09/21/22 15:05 Adenovirus (PCR) Not detected (NOT DETECT) 09/21/22 15:05 C. pneumoniae DNA (PCR) Not detected (NOT DETECT) 09/21/22 15:05 Coronavirus 229E (PCR) Not detected (NOT DETECT) 09/21/22 15:05 Human Metapneumovir PCR Detected (NOT DETECT) A 09/21/22 15:05 Influenza A (H1) PCR Not detected (NOT DETECT) 09/21/22 15:05 Influenza A (H3) PCR Not detected (NOT DETECT) 09/21/22 15:05 Influenza Type A (PCR) Not detected (NOT DETECT) 09/21/22 15:05 Influenza Type B (PCR) Not detected (NOT DETECT) 09/21/22 15:05 M. pneumoniae (PCR) Not detected (NOT DETECT) 09/21/22 15:05 Parainfluenza 1 (PCR) Not detected (NOT DETECT) 09/21/22 15:05 Parainfluenza 2 (PCR) Not detected (NOT DETECT) 09/21/22 15:05 Parainfluenza 3 (PCR) Not detected (NOT DETECT) 09/21/22 15:05 Parainfluenza 4 (PCR) Not detected (NOT DETECT) 09/21/22 15:05 RSV Type A (PCR) Not detected (NOT DETECT) 09/21/22 15:05 RSV Type B (PCR) Not detected (NOT DETECT) 09/21/22 15:05 Entero/Rhino (PCR) Not detected (NOT DETECT) 09/21/22 15:05 SARS-CoV-2 (PCR) Not detected (NOT DETECT) 09/21/22 15:05 Discharge Plan Discharge Patient Disposition: Placed in Observation Clinical Impression: Acute exacerbation of chronic obstructive airways disease, Upper respiratory infection Condition: Stable Prescriptions: No Action albuterol sulfate [ProAir HFA] 90 mcg/actuation HFA aerosol inhaler 2 puff inhalation Q6H PRN (Reason: shortness of breath or wheezing) Qty: 6.7 2RF Tylenol Ex Str Rapid Release 500 mg Tablet 500 - 1,000 mg PO Q6H PRN (Reason: Pain) Referrals: Nicolle Fox FNP [Primary Care Provider] - Coding Level of Care Code ED [place] [employer] for Chg Fwd Documented by User: Kristyn Reyes MD 09/21/22 19:15 HPI - SOB/Dyspnea General: Chief Complaint: Shortness of Breath/Dyspnea Stated Complaint: RESP DISTRESS Time Seen by Provider: 09/21/22 14:34 PFSH ED PFSH: Medical History COPD (chronic obstructive pulmonary disease) Family History Mother Dementia Father No problems noted. Social History Smoking and tobacco status: never smoked Course Vital Signs: Vital signs: Vital Signs Temperature 98.4 F 09/21/22 14:15 Pulse Rate 119 H 09/21/22 18:57 Respiratory Rate 22 H 09/21/22 18:43 Blood Pressure 119/85 09/21/22 14:22 Pulse Oximetry 92 09/21/22 18:43 Oxygen Delivery Me thod 09/21/22 18:43 Oxygen Flow Rate 3 09/21/22 18:43 MDM - SOB/Dyspnea Medical Decision Making Patient presents here with COPD exacerbation along with upper respiratory infection she did test positive for metapneumovirus likely causing her COPD exacerbation she still has wheezing after breathing treatments requiring 3 L CTA is normal I spoke to the hospitalist will admit at this time Lab Data 09/21/22 15:32 09/21/22 15:32 Labs/Radiology: Radiology Impressions Chest/Abdomen/Pelvis CT 09/21/22 14:53 IMPRESSION: 1. Mild nonspecific mediastinal adenopathy. 2. Moderate pulmonary emphysema. No acute lung findings otherwise. 3. Limited assessment for pulmonary embolism due to non CTA protocol. IMPRESSION: 1. Hepatic steatosis without cirrhosis. 2. Probable nonocclusive DVT (?vs artifacts) in the right femoral vein as described. Correlation with ultrasound/duplex imaging should be obtained. 3. No acute abdominopelvic findings otherwise. ADDENDUM: 09/21/[id number] Maher was notified by phone 6:25 p.m. Eastern time. Venous Duplex 09/21/22 17:26 IMPRESSION: 1. No evidence of deep vein thrombosis. 2. Intraluminal hypodensity on the recent CT therefore likely represented artifacts. Laboratory Results WBC 9.7 10^3/uL (4.0-10.0) 09/21/22 15: RBC 4.56 10^6/uL (4.1-5.3) 09/21/22 15:32 Hgb 12.7 g/dL (11.5-15.3) 09/21/22 15: Hct 40.1 % (37.0-47.0) 09/21/22 15:32 MCV 87.9 fl (81-99) 09/21/22 15: MCH 27.9 pg (28.0-34.0) L 09/21/22 15: MCHC 31.7 g/dL (30.0-36.0) 09/21/22 15: RDW 13.5 % (12.1-15.1) 09/21/22 15: Plt Count 163 10^3/cmm (130-400) 09/21/22 15: MPV 10.4 fL (7.4-10.4) 09/21/22 15:32 Neut % (Auto) 92.2 % 09/21/22 15: Lymph % (Auto) 3.1 % 09/21/22 15:32 Latimer % (Auto) 3.9 % 09/21/22 15:32 Eos % (Auto) 0.0 % 09/21/22 15: Baso % (Auto) 0.2 % 09/21/22 15: Neut # (Auto) 8.98 10^3/uL (1.8-7.7) H 09/21/22 15:32 Lymph # (Auto) 0.3 10^3/uL (0.8-4.8) L 09/21/22 15:32 Latimer # (Auto) 0.4 10^3/uL (0.2-0.9) 09/21/22 15:32 Eos # (Auto) 0.0 10^3/uL (0.0-0.8) 09/21/22 15:32 Baso # (Auto) 0.0 10^3/uL (0.0-0.1) 09/21/22 15:32 Nucleated RBC % (auto) 0 % 09/21/22 15:32 Nucleated RBCs # 0.0 /100WBC 09/21/22 15:32 Specimen Type Arterial 09/21/22 15:07 Sample Site Brachial, left 09/21/22 15:07 ABG pH 7.44 (7.35-7.45) 09/21/22 15:07 ABG pCO2 38.6 mmHg (35-45) 09/21/22 15:07 ABG pO2 75.2 mmHg (80.0-100.0) L 09/21/22 15:07 ABG HCO3 26.0 mmol/L (22-26) 09/21/22 15:07 ABG Base Excess 1.7 mmol/L (-2.0-2.0) 09/21/22 15:07 Willi Test Pos 09/21/22 15:07 Hematocrit 40.0 % (37-47) 09/21/22 15:07 Hgb O2 Saturation 95.0 % (95-100) 09/21/22 15:07 Carboxyhemoglobin 1.1 %THgb (0.4-20.1) 09/21/22 15:07 Methemoglobin 0.4 % (0.4-1.5) 09/21/22 15:07 Total Hemoglobin 13.0 g/dL (12-16) 09/21/22 15:07 O2 Delivery Device Nc 09/21/22 15:07 O2 Liters/Min 3.0 % 09/21/22 15:07 Travel Med Surg Rn ID Cak 09/21/22 15:07 Sodium 131 mmol/L (136-145) L 09/21/22 15:32 Potassium 3.6 mmol/L (3.5-5.1) 09/21/22 15:32 Chloride 95 mmol/L (98-107) L 09/21/22 15:32 Carbon Dioxide 22 mmol/L (22-29) 09/21/22 15:32 Anion Gap 17.6 (5-19) 09/21/22 15:32 BUN 12 mg/dL (8-23) 09/21/22 15:32 Creatinine 0.4 mg/dL (0.5-0.9) L 09/21/22 15:32 GFR Calculation 160.7 mL/min (90-130) H 09/21/22 15:32 Glucose 156 mg/dL (65-115) H 09/21/22 15:32 Calculated Osmolality 275 mOsm/kg (285-295) L 09/21/22 15:32 Calcium 8.2 mg/dL (8.5-10.5) L 09/21/22 15:32 Magnesium 1.8 mg/dL (1.7-2.3) 09/21/22 15:32 Total Bilirubin 0.6 mg/dL (0.15-1.2) 09/21/22 15:32 AST 22 U/L (0-32) 09/21/22 15:32 ALT 15 U/L (0-33) 09/21/22 15:32 Alkaline Phosphatase 85 U/L (35-105) 09/21/22 15:32 NT-Pro-B Natriuret Pep 387 pg/mL (0-125) H 09/21/22 15:32 Total Protein 6.6 g/dL (6.6-8.7) 09/21/22 15:32 Albumin 3.3 g/dL (3.5-5.2) L 09/21/22 15:32 Globulin 3.3 g/dL (1.3-4.6) 09/21/22 15:32 Nasal Influ A H1 2008 PCR Not detected (NOT DETECT) 09/21/22 15:05 Adenovirus (PCR) Not detected (NOT DETECT) 09/21/22 15:05 C. pneumoniae DNA (PCR) Not detected (NOT DETECT) 09/21/22 15:05 Coronavirus 229E (PCR) Not detected (NOT DETECT) 09/21/22 15:05 Human Metapneumovir PCR Detected (NOT DETECT) A 09/21/22 15:05 Influenza A (H1) PCR Not detected (NOT DETECT) 09/21/22 15:05 Influenza A (H3) PCR Not detected (NOT DETECT) 09/21/22 15:05 Influenza Type A (PCR) Not detected (NOT DETECT) 09/21/22 15:05 Influenza Type B (PCR) Not detected (NOT DETECT) 09/21/22 15:05 M. pneumoniae (PCR) Not detected (NOT DETECT) 09/21/22 15:05 Parainfluenza 1 (PCR) Not detected (NOT DETECT) 09/21/22 15:05 Parainfluenza 2 (PCR) Not detected (NOT DETECT) 09/21/22 15:05 Parainfluenza 3 (PCR) Not detected (NOT DETECT) 09/21/22 15:05 Parainfluenza 4 (PCR) Not detected (NOT DETECT) 09/21/22 15:05 RSV Type A (PCR) Not detected (NOT DETECT) 09/21/22 15:05 RSV Type B (PCR) Not detected (NOT DETECT) 09/21/22 15:05 Entero/Rhino (PCR) Not detected (NOT DETECT) 09/21/22 15:05 SARS-CoV-2 (PCR) Not detected (NOT DETECT) 09/21/22 15:05 Discharge Plan Discharge Patient Disposition: Placed in Observation Clinical Impression: Acute exacerbation of chronic obstructive airways disease, Upper respiratory infection Condition: Stable Prescriptions: No Action albuterol sulfate [ProAir HFA] 90 mcg/actuation HFA aerosol inhaler 2 puff inhalation Q6H PRN (Reason: shortness of breath or wheezing) Qty: 6.7 2RF Tylenol Ex Str Rapid Release 500 mg Tablet 500 - 1,000 mg PO Q6H PRN (Reason: Pain) Referrals: Nicolle Fox FNP [Primary Care Provider] - Coding Level of Care Code ED [place] [employer] for Rere Walton
--- NOTE | 2022-09-21 14:53 | CTR_ITS ---
PROCEDURE INFORMATION: Exam: CT Chest With Contrast; Diagnostic Exam date and time: 09/21/2022 3:33 PM Age: 62 years old Clinical indication: Vomiting; Shortness of breath; Additional info: Tachycardia, dyspnea, hypoxia, n/v/d abd pain rlq TECHNIQUE: Imaging protocol: Diagnostic computed tomography of the chest with contrast. Radiation optimization: All CT scans at this facility use at least one of these dose optimization techniques: automated exposure control; mA and/or kV adjustment per patient size (includes targeted exams where dose is matched to clinical indication); or iterative reconstruction. Contrast material: OMNI 350; Contrast volume: 100 ml; Contrast route: INTRAVENOUS (IV); REPORTING DATA: Count of CT and Cardiac NM exams in prior 12 months: This patient has received 0 known CTs and 0 known cardiac nuclear medicine studies in the 12 months prior to the current study. COMPARISON: No relevant prior studies available. RADIATION DOSE METRICS: Total DLP (mGy-cm): 1005.01 FINDINGS: Lungs: See Lymph nodes finding. Pleural spaces: Unremarkable. No pneumothorax. No pleural effusion. Heart: No cardiomegaly. No pericardial effusion. Lymph nodes: Moderate nonspecific slightly prominent mediastinal lymph nodes, including subcarinal lymph node measuring 13 mm, right hilar node measuring 16 mm and left hilar node measuring 13 mm. pulmonary emphysema. No lung consolidation or ground-glass opacity. Vasculature: There is no pulmonary embolism in the central-lobar branches. Assessment of the peripheral segmental/subsegmental small branches is limited due to non CTA protocol. Bones/joints: No acute findings. Soft tissues: No acute findings. COMMENTS: In the absence of a history or active diagnosis of lung cancer, it is recommended that this patient with emphysema be evaluated for enrollment in a low dose CT lung cancer screening program. PROCEDURE INFORMATION: Exam: CT Abdomen And Pelvis With Contrast Exam date and time: 09/21/2022 3:33 PM Age: 62 years old Clinical indication: Vomiting; Shortness of breath; Additional info: Tachycardia, dyspnea, hypoxia, n/v/d abd pain rlq TECHNIQUE: Imaging protocol: Computed tomography of the abdomen and pelvis with contrast. Radiation optimization: All CT scans at this facility use at least one of these dose optimization techniques: automated exposure control; mA and/or kV adjustment per patient size (includes targeted exams where dose is matched to clinical indication); or iterative reconstruction. Contrast material: OMNI 350; Contrast volume: 100 ml; Contrast route: INTRAVENOUS (IV); REPORTING DATA: Count of CT and Cardiac NM exams in prior 12 months: This patient has received 0 known CTs and 0 known cardiac nuclear medicine studies in the 12 months prior to the current study. COMPARISON: CR XR hip LT 2-3V wo/w pel* [id number] 03/31/2022 1:27 PM RADIATION DOSE METRICS: Total DLP (mGy-cm): 1005.01 FINDINGS: Liver: Normal liver size with steatosis. No cirrhosis or suspicious lesion. Gallbladder and bile ducts: Normal. No calcified stones. No ductal dilation. Pancreas: Normal. No ductal dilation. Spleen: Normal. No splenomegaly. Adrenal glands: Normal. No mass. Kidneys and ureters: No obstructing calculus. No hydronephrosis. Stomach and bowel: Unremarkable. No obstruction. No mucosal thickening. Appendix: No evidence of appendicitis. Intraperitoneal space: Unremarkable. No free air. No significant fluid collection. Vasculature: Common origin of the celiac artery and SMA. Aortoiliac calcifications without aneurysm. Hypodense small nonocclusive focus in the lumen of upper right femoral vein, just below saphenous junction, series 6, image 77. This may represent a nonocclusive DVT and correlation with ultrasound duplex imaging should be considered. Mixing artifact versus another nonocclusive thrombus may be present in the right femoral vein more inferiorly Lymph nodes: No enlarged lymph nodes. Urinary bladder: Unremarkable as visualized. Reproductive: Unremarkable as visualized. Bones/joints: Osteopenia. Multilevel vertebral disc degeneration and endplate osteophytes. No acute osseous findings otherwise. Metallic surgical hardware in both hips resulting in streak artifacts partially obscuring adjacent anatomy. Soft tissues: No acute findings. CT/CT chest abdpel w/*[id number] IMPRESSION: 1. Mild nonspecific mediastinal adenopathy. 2. Moderate pulmonary emphysema. No acute lung findings otherwise. 3. Limited assessment for pulmonary embolism due to non CTA protocol. IMPRESSION: 1. Hepatic steatosis without cirrhosis. 2. Probable nonocclusive DVT (?vs artifacts) in the right femoral vein as described. Correlation with ultrasound/duplex imaging should be obtained. 3. No acute abdominopelvic findings otherwise.
--- NOTE | 2022-09-21 14:54 | ECG_ITS ---
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 Measurements Intervals Flora Rate: 114 P: 270 WY: 152 QRS: -83 QRSD: 117 T: -85 QT: 300 QTc: 414 Interpretive Statements ECTOPIC ATRIAL TACHYCARDIA WITH OCCASIONAL ECTOPIC PREMATURE COMPLEXES LEFT AXIS DEVIATION [QRS AXIS < -30] INCOMPLETE RIGHT BUNDLE BRANCH BLOCK [90+ ms QRS DURATION, TERMINAL R IN V1/V2, 40+ ms S IN I/aVL/V4/V5/V6] NONSPECIFIC T-WAVE ABNORMALITY Compared to ECG 06/12/2021 12:35:28 Left-axis deviation now present T-wave abnormality now present Sinus tachycardia no longer present Ventricular premature complex(es) no longer present Electronically Signed On 09-21-2022 23:22:34 CDT by Kala Lester M.D. [id number]
[2022-09-21] MEDS: sodium chloride 0.9% 1,000 ML 999 ML IV (15:03)
[2022-09-21 15:18] LABS: ABG PCO2 38.6 mmHg (35-45); ABG PH Result 7.44 (7.35-7.45); Base Excess ABG 1.7 mmol/L (-2.0-2.0); Blood Gas Allen Test Pos; Blood Gas Operator Identificat CAK; Blood Gas Sample Site Brachial, left; Blood Gas Sample Type Arterial; Carboxyhemoglobin 1.1 %THgb (0.4-20.1); Methemoglobin 0.4 % (0.4-1.5); Oxygen Device NC; PO2 ABG 75.2 mmHg (80.0-100.0)
[2022-09-21 15:45] LABS: Basophils % 0.2 %; Hematocrit 40.1 % (37.0-47.0); Hemoglobin 12.7 g/dL (11.5-15.3); Lymphocytes # 0.3 10^3/uL (0.8-4.8); Lymphocytes % 3.1 %; Mean Corpuscular HGB Conc 31.7 g/dL (30.0-36.0); Mean Corpuscular Hemoglobin 27.9 pg (28.0-34.0); Mean Corpuscular Volume 87.9 fl (81-99); Mean Platelet Volume 10.4 fL (7.4-10.4); Monocytes # 0.4 10^3/uL (0.2-0.9); Monocytes % 3.9 %; Neutrophils # 8.98 10^3/uL (1.8-7.7); Neutrophils % 92.2 %; Nucleated Red Blood Cells % 0 %; Platelet Count 163 10^3/cmm (130-400); Red Blood Count 4.56 10^6/uL (4.1-5.3); Red Cell Distribution Width 13.5 % (12.1-15.1); White Blood Count 9.7 10^3/uL (4.0-10.0)
[2022-09-21 16:18] LABS: Alanine Aminotransferase 15 U/L (0-33); Albumin Level 3.3 g/dL (3.5-5.2); Alkaline Phosphatase 85 U/L (35-105); Aspartate Amino Transferase 22 U/L (0-32); Blood Urea Nitrogen 12 mg/dL (8-23); Calcium 8.2 mg/dL (8.5-10.5); Carbon Dioxide 22 mmol/L (22-29); Chloride 95 mmol/L (98-107); Creatinine Clr Calc Pharmacy 148.6724; Globulin 3.3 g/dL (1.3-4.6); Glomerular Filtration Rate 160.7 mL/min (90-130); Glucose 156 mg/dL (65-115); Magnesium 1.8 mg/dL (1.7-2.3); NT Pro B Type Natriuretic Pept 387 pg/mL (0-125); Osmolality Calculated 275 mOsm/kg (285-295); Sodium 131 mmol/L (136-145); Total Bilirubin 0.6 mg/dL (0.15-1.2); Total Protein 6.6 g/dL (6.6-8.7)
[2022-09-21 16:21] LABS: Anion Gap 17.6 (5-19); Potassium 3.6 mmol/L (3.5-5.1)
[2022-09-21] MEDS: iohexol 350 mg/mL 500 mL Btl (per mL) IV (16:35)
--- NOTE | 2022-09-21 17:26 | USR_ITS ---
PROCEDURE INFORMATION: Exam: US Duplex Lower Extremity Veins, Bilateral Exam date and time: 09/21/2022 5:40 PM Age: 62 years old Clinical indication: Abnormal findings; Abnormal imaging study of limbs; Chest, abd/pelv; CT; Additional info: Abnormal femoral vein on CT, recommended by radiologist, , dyspnea, tachycardia, hypoxia TECHNIQUE: Imaging protocol: Real-time duplex ultrasound of the bilateral extremities with 2-D nielsen scale, color Doppler flow and spectral waveform analysis including responses to compression and other maneuvers (when performed) with image documentation. Complete exam focused on the lower extremity veins. COMPARISON: CT chest abdpel w/*[id number] 09/21/2022 3:33 PM FINDINGS: Right deep veins: Calf vein and lower femoral vein assessment is limited due to body habitus and soft tissue swelling. The common femoral, upper femoral, proximal profunda femoral and popliteal veins are patent without thrombus. Normal Doppler waveforms. Normal compressibility and/or augmentation response. The common femoral, femoral, proximal profunda femoral and popliteal veins are patent without thrombus. Normal Doppler waveforms. Normal compressibility and/or augmentation response. Right superficial veins: Saphenofemoral junction is patent without thrombus. Left deep veins: Calf vein and lower femoral vein assessment is limited due to body habitus and soft tissue swelling. Left superficial veins: Saphenofemoral junction is patent without thrombus. Soft tissues: Unremarkable. US/[place] [id number] IMPRESSION: 1. No evidence of deep vein thrombosis. 2. Intraluminal hypodensity on the recent CT therefore likely represented artifacts.
[2022-09-21 17:45] LABS: Adenovirus Not Detected (NOT DETECT); Chlamydia Pneumoniae Not Detected (NOT DETECT); Coronavirus 229E,HKU1,NL63,OC4 Not Detected (NOT DETECT); Human Metapneumovirus Detected (NOT DETECT); Human Rhinovirus/Enterovirus Not Detected (NOT DETECT); Influenza A Not Detected (NOT DETECT); Influenza A H1 Not Detected (NOT DETECT); Influenza A H1-2009 Not Detected (NOT DETECT); Influenza A H3 Not Detected (NOT DETECT); Influenza B Not Detected (NOT DETECT); Mycoplasma Pneumoniae Not Detected (NOT DETECT); Parainfluenza Virus Type 1 Not Detected (NOT DETECT); Parainfluenza Virus Type 2 Not Detected (NOT DETECT); Parainfluenza Virus Type 3 Not Detected (NOT DETECT); Parainfluenza Virus Type 4 Not Detected (NOT DETECT); Respiratory Syncytial Virus A Not Detected (NOT DETECT); Respiratory Syncytial Virus B Not Detected (NOT DETECT); SARS-COV-2 Not Detected (NOT DETECT)
[2022-09-21] MEDS: albuterol 2.5 mg/3 mL Neb INHALATION (18:39)
[2022-09-21] MEDS: ipratropium 0.5 mg/2.5 mL Neb INHALATION ×2 (18:39→21:48)
--- NOTE | 2022-09-21 21:01 | P.HP_ITS ---
Providers/Chief Complaint Admitting Physician: Kavon Cabrera MD Primary Care Provider: SRINIVASA Brady Chief Complaint: RESP DISTRESS History of Present Illness Kellie Galdamez is a 62 year old female with past medical history of COPD on night oxygen presents to the ER today with difficulty in breathing along with cough and sore throat which has been getting worse for last 3 to 4 days along with runny nose and congestion. Patient states she has been having more more difficulty in breathing and she is to come to the ER. In the ER she is found to be hypoxic requiring up to 3 L of oxygen supplementation to maintain saturation over 90%. On examination patient in comfortably in bed, wheezing on minimal conversation and getting more short of breath but able to have complete conversation. Blood work in the ER showed a white count 9.7, hemoglobin 12.7, D-dimer of 0.8, ABG showing a pH of 7.44, PCO2 of 38.6, PO2 75.2, chemistry showing a sodium of 131, creatinine 0.4, proBNP of 387 with respiratory viral panel positive for metapneumovirus and CT chest and pelvis as below. Review of Systems General: Reports: 10 or more systems reviewed and unremarkable except in HPI and below Const: Denies: fever(s), chills, body aches, change in appetite, change in weight, malaise, night sweats, diaphoresis, change in sleep pattern, daytime sleepiness or snoring Eyes: Denies: change in vision, blurry vision, photophobia, eye discomfort or eye discharge ENMT: Denies: throat pain, enlarged tonsils, hoarseness, mouth pain, oral sores, dry mouth, tinnitus, nasal congestion or post nasal drip Card: Denies: chest pain, palpitations, irregular heart rhythm, edema, swellin g of feet/ankles, lightheadedness, syncope, pre-syncope, dyspnea on exertion, orthopnea, leg pain with exertion or acrocyanosis Resp: Denies: dyspnea, productive cough, non-productive cough, wheezing, stridor, pain on inspiration, change in phlegm color, hemoptysis or chest congestion GI: Denies: abdominal pain, nausea, vomiting, hematemesis, coffee ground emesis, dysphagia, heartburn, diarrhea, constipation, bloating, GI cramping, change in bowel habits, pain on defecation, hematochezia or melena : Denies: flank pain, dysuria, urinary frequency, urinary urgency, urinary hesitancy, nocturia or hematuria Musc: Denies: neck pain, back pain, extremity pain, joint pain, joint swelling, joint redness, joint stiffness or limited range of motion Neuro: Denies: headache(s), numbness in extremities, weakness in extremities, sensory changes, lack of coordination, difficulty walking, frequent falls, dizziness, vertigo, confusion, Slurred speech present, difficulty communicating thoughts or seizure-like activity Psych: Denies: anxiety, depression, mood swings, panic attacks, hopelessness or irritability Endo: Denies: polyuria, polydipsia, tired all the time, cold intolerance, excessive sweating, flushing or heat intolerance Bairon/Lymph: Denies: easy bruising or easy bleeding All/Imm: Denies: tongue swelling, facial swelling or acute wheezing Medications/Allergies Home Medications Medication Instructions Recorded Confirmed Last Taken Type albuterol sulfate 90 mcg/actuation 2 puff inhalation Q6H PRN 01/17/22 09/21/22 07/03/21 Rx aerosol inhaler (ProAir HFA) shortness of breath or wheezing #6.7 grams acetaminophen 500 mg tablet 500 - 1,000 mg PO Q6H PRN Pain 09/21/22 09/21/22 Unknown History Allergies Allergy/AdvReac Type Severity Reaction Status Date / Time No Known Allergies Allergy Verified 09/21/22 14:36 PFSH Acute PFSH: Medical History COPD (chronic obstructive pulmonary disease) Family History Mother Dementia Father No problems noted. Social History Smoking and tobacco status: never smoked Vitals/I&O/Wt Last Vital Signs Temp 98.3 F 09/21/22 20:25 Pulse 120 H 09/21/22 20:25 Resp 18 09/21/22 20:25 BP 140/67 09/21/22 20:25 Pulse Ox 93 09/21/22 20:25 O2 Del Method 09/21/22 20:27 O2 Flow Rate 3 09/21/22 20:25 09/21/22 09/21/22 09/21/22 06:59 14:59 22:59 Intake Total 1000 / 1000 Balance 1000 / 1000 Weight last 48 hrs Weight 79.634 kg Weight 79.634 kg Weight 69.853 kg Physical Exam Narrative: General: No acute distress, AO x3, NC oxygen supplementation HEENT: PERRLA, pupils bilaterally equal and reactive Chest:Bronchial breath sounds b/l, bilateral extensive rhonchi all over the lung field, occasional coarse crackles present CVS: S1-S2 regular, no murmurs, no tachycardia, no gallops, no rubs Abdomen: Soft, nontender, no organomegaly, bowel sounds present, morbidly obese Neuro: No focal deficits, no facial deformity, AO x3, power 5/5 in all limbs Data 09/21/22 15:32 09/21/22 15:32 A&P Assessment and plan (1) Hypoxia: Most likely in setting of COPD exacerbation secondary to metapneumovirus infection. Oxygen supplementation keeping saturation over 90%. IV Solu-Medrol 40 mg every 6 hourly. Ipratropium, Xopenex every 6 hourly, budesonide twice daily. Check echocardiogram. No history of CHF in the past. CT imaging done in the ER negative for consolidation. Hold off on antibiotics. Check MRSA swab, procalcitonin, urine Legionella, bacterial antigen, sputum culture, urinalysis, CRP, D-dimer. (2) Acute exacerbation of chronic obstructive airways disease: (3) Human metapneumovirus (hMPV) pneumonia: Plan Tachycardia: Mild on admission. Most likely in setting of hypoxia. Can be secondary to DuoNebs. Switch from DuoNeb to ipratropium and Xopenex. Continue to monitor. Gentle IV hydration with normal saline at 75 cc/h. Full code. Regular diet. Protonix OPD prophylaxis Heparin 5000 every 8 hourly. Attestations Medical Necessity Statement*: Admission under observation for management of hypoxia in setting of COPD exacerbation secondary to metapneumovirus infection Coding Level of Care Code 86531 Moderate MDM includes number and complexity of problems actively addressed during encounter, amount and/or complexity of data reviewed/ordered [ previous or external records, resulted lab(s)/test(s), ordered lab(s)/test(s), independent test interpretation and other healthcare professional discussion] and described risk of complication, morbidity or mortality of management as docu mented Diagnoses Hypoxia R09.02 Acute exacerbation of chronic obstructive airways disease J44.1 Human metapneumovirus (hMPV) pneumonia J12.3
[2022-09-21] MEDS: enoxaparin 40 mg/0.4 mL Syringe SUBCUT (21:36)
[2022-09-21] MEDS: pantoprazole 40 mg SDV IVP (21:36)
[2022-09-21] MEDS: sodium chloride 0.9% 1,000 ML 75 ML IV (21:36)
[2022-09-21 21:44] LABS: D Dimer 0.86 ug/mIFEU (0-0.59)
[2022-09-21] MEDS: morphine 4 mg/mL SDV 1 mL 2 MG IVP (21:48)
[2022-09-21 22:12] LABS: C Reactive Protein 131.8 mg/L (0.0-4.9)
[2022-09-21 22:27] LABS: Procalcitonin 0.91 ng/mL (0-0.5); Vitamin B12 274 pg/mL (232-1245)
[2022-09-21 23:07] LABS: Thyroid Stimulating Hormone 1.56 uIU/mL (0.27-4.20)
[2022-09-21 23:38] LABS: Folate Level > 20.0 ng/mL (4.8-37.3)
[2022-09-22] VITALS (12 sets, daily range): BP systolic 108–145; BP diastolic 59–81; PULSE 62–105; RESP 16–22; TEMP 36.5–37.5; O2SAT 93–97
[2022-09-22 05:00] LABS: Basophils % 0.2 %; Hematocrit 37.1 % (37.0-47.0); Hemoglobin 11.7 g/dL (11.5-15.3); Lymphocytes # 0.6 10^3/uL (0.8-4.8); Lymphocytes % 6.1 %; Mean Corpuscular HGB Conc 31.5 g/dL (30.0-36.0); Mean Corpuscular Hemoglobin 26.8 pg (28.0-34.0); Mean Corpuscular Volume 85.1 fl (81-99); Mean Platelet Volume 10.8 fL (7.4-10.4); Monocytes # 0.5 10^3/uL (0.2-0.9); Monocytes % 5.5 %; Neutrophils # 7.98 10^3/uL (1.8-7.7); Neutrophils % 87.9 %; Nucleated Red Blood Cells % 0 %; Platelet Count 183 10^3/cmm (130-400); Red Blood Count 4.36 10^6/uL (4.1-5.3); Red Cell Distribution Width 13.3 % (12.1-15.1); White Blood Count 9.1 10^3/uL (4.0-10.0)
[2022-09-22 05:26] LABS: Alanine Aminotransferase 17 U/L (0-33); Albumin Level 3.3 g/dL (3.5-5.2); Alkaline Phosphatase 92 U/L (35-105); Anion Gap 14.9 (5-19); Aspartate Amino Transferase 19 U/L (0-32); Blood Urea Nitrogen 10 mg/dL (8-23); Calcium 8.1 mg/dL (8.5-10.5); Carbon Dioxide 25 mmol/L (22-29); Chloride 98 mmol/L (98-107); Chol HDL Ratio 2.86 mg/dL (0.0-4.40); Cholesterol 126 mg/dL (0-200); Glomerular Filtration Rate 160.7 mL/min (90-130); Glucose 188 mg/dL (65-115); HDL Cholesterol 44 mg/dL (60-100); LDL Cholesterol Calculated 71 mg/dL (50-129); LDL HDL Ratio 1.61 RATIO (0.00-3.22); Magnesium 2.1 mg/dL (1.7-2.3); Osmolality Calculated 282 mOsm/kg (285-295); Phosphorus 1.9 mg/dL (2.5-4.5); Potassium 3.9 mmol/L (3.5-5.1); Sodium 134 mmol/L (136-145); Total Bilirubin 0.3 mg/dL (0.15-1.2); Total Protein 6.3 g/dL (6.6-8.7); Triglycerides 53 mg/dL (0-150)
[2022-09-22 05:32] LABS: Estmated Average Glucose 114; Hemoglobin A1C 5.6 % (4.0-6.0)
--- NOTE | 2022-09-22 06:00 | USCV_ITS ---
Kellie Galdamez Age: 62 Gender: F : 1960 Exam Date: 09/22/2022 08:56 Ordering Phys: Kavon Cabrera MD Technologist: JUD Exam Location: [facility] – [place] Indication: CHRONIC HEART FAILURE BP: 125 / HR: 96 Rhythm: Sinus Technical Quality: Adequate MEASUREMENTS (Male / Female) Normal Values 2D ECHO LVOT Diameter 2.0 cm LV Ejection Fraction MOD 2C 60.3 % LV Ejection Fraction 2C AL 61.9 % LA Diameter 2.7 cm LA Width 3.6 cm LA Height 4.2 cm RA Width 3.1 cm RA Height 3.9 cm Aorta at Sinotubular Diameter 2.4 cm IVC Diameter 2.0 cm M-MODE Aortic Annulus Diameter 3.0 cm LA Ao Ratio MM 0.9 MV E Point Septal Separation 0.8 cm DOPPLER AV Peak Velocity 146.0 cm/s LVOT Peak Velocity 84.0 cm/s AV Area Cont Eq vti 2.3 cm squared AV Area Cont Eq pk 1.8 cm squared MV Peak Velocity 89.0 cm/s MV Area PHT 5.0 cm squared Mitral E to A Ratio 0.8 MV E' Velocity 42.5 cm/s Mitral E to MV E' Ratio 6.6 Mitral E to LV E' Lateral Ratio 5.7 Mitral E to LV E' Septal Ratio 7.8 TV Peak E Velocity 50.0 cm/s Right Atrial Pressure 3.0 mmHg PV Peak Velocity 103.0 cm/s RV Acceleration Time 0.1 s RV Ejection Time 0.3 s RV AcT/ET 0.4 FINDINGS Left Ventricle Normal left ventricular size, systolic function and wall thickness, with no regional wall motion abnormalities. Normal left ventricular wall thickness. Left ventricular ejection fraction is estimated at 60 %. Grade I/IV diastolic dysfunction (abnormal relaxation filling pattern), normal to mildly elevated filling pressures. Right Ventricle The right ventricle is normal in size and function. Right Atrium The right atrium is normal in size. Left Atrium The left atrium is normal in size. Mitral Valve Structurally normal mitral valve without significant stenosis or prolapse. Mild mitral regurgitation. Aortic Valve Structurally normal aortic valve wit moderate sclerosis but no significant stenosis. There is no aortic regurgitation. Tricuspid Valve Structurally normal tricuspid valve without significant stenosis, mild regurgitation. Pulmonary artery systolic pressure is normal. Pulmonic Valve Structurally normal pulmonic valve without significant stenosis. There is no pulmonic regurgitation. Pericardium Normal pericardium without effusion. Aorta Normal ascending aorta dimension. IVC The inferior vena cava appears normal. CONCLUSIONS 1-Normal left ventricular size, systolic function and wall thickness, with no regional wall motion abnormalities. Normal left ventricular wall thickness.Grade I/IV diastolic dysfunction (abnormal relaxation filling pattern), normal to mildly elevated filling pressures. Estimated ejection fraction appeared to be 60 % 2-There is no pericardial effusion. 3-No significant valve abnormalities. 4-Right atrial pressure is around 5 mm of mercury. Levon Xiao MD (Electronically Signed) Final Date: 22 September 2022 19:16 S
[2022-09-22 06:27] LABS: Glucose Urine UA 4+ (Normal); Protein Urine 1+ (Negative); Specific Gravity, Urine 1.015 (1.005-1.030); Urine Appearance Clear (CLEAR); Urine Color Yellow (Yellow); pH Urine 6 (5-7)
[2022-09-22 06:28] LABS: Add Urine Microscopic? YES; Bilirubin Urine Neg (Negative); Blood Urine 2+ (Negative); Ketones Urine 1+ (Negative); Leukocyte Esterase Urine Negative (Negative); Nitrate Urine Negative (Negative); Urobilinogen Urine 1 mg/dL (Negative)
[2022-09-22 06:31] LABS: Add Urine Culture? No; Amorphous Sediment Urine 1+ /hpf; Bacteria Urine 1+ /hpf; Mucus Urine TRACE /hpf; Squamous Epithelial Cell Urine 0-4 /hpf (0-5); WBC Urine 0-4 /hpf (0-5)
[2022-09-22] MEDS: ipratropium 0.5 mg/2.5 mL Neb INHALATION ×3 (07:22→20:19)
[2022-09-22] MEDS: levalbuterol 0.63 mg/3 mL Neb INHALATION ×3 (07:22→20:19)
[2022-09-22 07:26] LABS: Slide Review Slide Review Perform
[2022-09-22] MEDS: budesonide 0.5 mg/2 mL Neb INHALATION ×2 (07:27→20:19)
--- NOTE | 2022-09-22 10:30 | PC.CHAP ---
Pastoral Care Encounter/Spiritual Assessment Type of Contact [] Declined waiter/waitress buffet visit [] Patient/Family/Request visit [] Outpatient visit [] Follow-up visit [] Physician referral [] Code/Alert [x] Routine visit [] Staff referral [] Actively dying [x] Patient sleeping [] Family support [] [] Out of room [] Palliative care [] [] Receiving care in room [] Pre-surgical visit [] Trauma [] Long length of stay [] ICU visit [] Other: Relational/Emotional Strength [] Patient feels connected with others/family/visitors/staff [] Distress [] Loneliness/isolation [] Abandonment Spirituality of Patient [] Person of Karissa [] Attends Cheondoism of their Karissa [] Believes in Prayer [] Reads Bible or Jew materials [] There are Spiritual issues to be addressed [employer] Interventions [] Prayer [] Active listening [] Non-anxious presence [] Spiritual/emotional support [] Crisis/trauma care [] Spiritual counseling [] Bereavement support [] Provided bereavement packet [] Provided Bible/devotional materials [] Provided toy/stuffed animal, coloring book to patient or family member [] Provided Communion [] Anointing/[place] [] Salvation [] Completed spiritual assessment [] Other: Impact on Illness or Injury [] Angry [] Fearful [] Anxious [] Often cries [] Exhaustion [] Unable to work [] Unable to attend christian [] Unable to walk/stand [] Unable to read [] Unable to drive [] Unable to eat/drink [] Unable to sleep [] Unable to be with family [] Patient intubated [] Other: Summary Time spent with patient
--- NOTE | 2022-09-22 12:19 | P.PN_ITS ---
Subjective Subjective: Patient was seen and examined this morning she was complaining of, shortness of breath as well as worsening cough. Medications: Medication Review Details: Generic Name Dose Route Start Last Admin Trade Name Marina PRN Reason Stop Dose Admin Budesonide 0.5 mg 09/22/22 08:00 09/22/22 07:27 Budesonide 0.5 M g/2 Ml Neb INHALATION 0.5 mg BID.RESPIRATORY S CH Administration Enoxaparin Sodium 40 mg 09/21/22 21:00 09/21/22 21:36 Enoxaparin 40 Mg /0.4 Ml Syringe SUBCUT 40 mg Q24H FRANCES Administration Azithromycin 500 m g/ Sodium 250 mls @ 250 mls /hr 09/22/22 13:00 09/22/22 13:42 Chloride IV 250 mls/hr Q24H FRANCES Administration Protocol Ipratropium Bromid e 0.5 mg 09/21/22 21:00 09/22/22 14:06 Ipratropium 0.5 Mg/2.5 Ml Neb INHALATION 0.5 mg Q6H.RESP FRANCES Administration Levalbuterol HCl 0.63 mg 09/22/22 02:00 09/22/22 14:06 Levalbuterol 0.6 3 Mg/3 Ml Neb INHALATION 0.63 mg Q6H.RESP FRANCES Administration Methylprednisolone Sodium Succinate 60 mg 09/22/22 13:00 09/22/22 13:42 Methylprednisolo ne Sod Succ 125 Mg /2 Ml Inj IVP 60 mg Q6H FRANCES Administration Morphine Sulfate 2 mg 09/21/22 20:58 09/21/22 21:48 Morphine 4 Mg/Ml Sdv 1 Ml IVP 2 mg Q4H PRN Administration SEVERE PAIN Pantoprazole Sodiu m 40 mg 09/21/22 21:00 09/21/22 21:36 Pantoprazole 40 Mg Sdv IVP 40 mg Q24H FRANCES Administration Vitals/I&O/Wt Last Vital Signs Temp 97.9 F 09/22/22 11:56 Pulse 62 09/22/22 11:56 Resp 18 09/22/22 11:56 BP 108/59 09/22/22 11:56 Pulse Ox 97 09/22/22 11:56 O2 Del Method 09/22/22 11:56 O2 Flow Rate 3 09/22/22 07:35 09/21/22 09/22/22 09/22/22 22:59 06:59 14:59 Intake Total 1000 / 1000 360 / 1360 1472.5 / 1472.5 Balance 1000 / 1000 360 / 1360 1472.5 / 1472.5 Weight last 48 hrs Weight 81.012 kg Weight 79.634 kg Weight 79.634 kg Weight 69.853 kg Physical Exam Const: COMMON NORMALS: patient oriented x3 HENMT: COMMON NORMALS: normocephalic, atraumatic, hearing grossly normal bilaterally and external ears normal HEAD & SCALP: normocephalic and atraumatic EXTERNAL EAR: Yes external ears normal Resp: EFFORT & INSPECTION: Yes symmetric chest movement OTHER: Diminished air entry bilaterally, bilateral wheezing, bilateral occasional rhonchi. Cardio: COMMON NORMALS: regular rate, regular rhythm, S1 normal heart sound present, S2 normal heart sound present, No gallops present (Cardio), No murmurs present (Cardio), No rub (Cardio) and Peripheral pulses 2+ throughout RATE: regular rate RHYTHM: regular rhythm HEART SOUNDS: S1 normal heart sound present and S2 normal heart sound present PERIPHERAL PULSES: Peripheral pulses 2+ throughout GI: COMMON NORMALS: Normal to inspection, nondistended, normoactive bowel sounds present, Soft to palpation, non-tender, No hepatosplenomegaly present and no masses AUSCULTATION: Yes normoactive bowel sounds PALPATION: Yes Soft to palpation and Yes No hepatosplenomegaly present RECTAL EXAM: deferred Extremity: COMMON NORMALS: no clubbing, cyanosis or edema and no pedal edema Neuro: COMMON NORMALS: patient oriented x3 Data 09/22/22 04:27 09/22/22 04:27 Micro: Microbiology 09/22/22 05:20 Bacterial Antigens - Final Urine Kidney 09/22/22 05:20 Legionella Urinary Antigen - Final Unknown Source A&P Assessment and plan (1) Hypoxia: Most likely in setting of COPD exacerbation secondary to metapneumovirus infection. (2) Acute exacerbation of chronic obstructive airways disease: (3) Human metapneumovirus (hMPV) pneumonia: Plan 62-year-old female with past medical history of COPD came in with chief complaint of worsening shortness of breath along with cough, sore throat, runny nose, which has worsened over the last 3 days. Currently she is being managed for. Assessment: COPD exacerbation likely secondary to metapneumovirus CT chest abdomen and pelvis: ?Moderate pulmonary emphysema. Was limited study for PE evaluation due to non CTA protocol.no pulmonary embolism in the central- lobar branches. Bilateral lower extremity Dopplers vein were negative for DVT Urine Legionella antigen negative Bacterial antigen panel negative Sputum Gram stain and culture: MRSA PCR : 2D echo: D-Dimer: 0.86 Continue DuoNebs Solu-Medrol 60 IV every 6 Has been started on azithromycin 500 mg IV every 24 hours Supplemental oxygen as needed Tachycardia: Mild on admission. Most likely in setting of hypoxia. Can be secondary to DuoNebs. Switch from DuoNeb to ipratropium and Xopenex. Continue to monitor. Gentle IV hydration with normal saline at 75 cc/h. Full code. Regular diet. Protonix OPD prophylaxis Heparin 5000 every 8 hourly. Attestations Medical Necessity Statement*: Patient is to be in hospital management of COPD exacerbation Coding Level of Care Code 95763 Diagnoses Hypoxia R09.02 Acute exacerbation of chronic obstructive airways disease J44.1 Human metapneumovirus (hMPV) pneumonia J12.3
[2022-09-22] MEDS: azithromycin 500 MG in sodium chloride 0.9% 250 ML 250 MG IV (13:42)
[2022-09-22] MEDS: guaiFENesin 600 mg Tablet PO (18:01)
[2022-09-22] MEDS: pantoprazole 40 mg SDV IVP (20:39)
[2022-09-22] MEDS: enoxaparin 40 mg/0.4 mL Syringe SUBCUT (21:06)
[2022-09-23] VITALS (12 sets, daily range): BP systolic 133–145; BP diastolic 69–77; PULSE 76–97; RESP 15–20; TEMP 36.4–36.8; O2SAT 3–95
[2022-09-23] MEDS: levalbuterol 0.63 mg/3 mL Neb INHALATION ×4 (01:04→20:09)
[2022-09-23] MEDS: ipratropium 0.5 mg/2.5 mL Neb INHALATION ×4 (01:04→20:09)
[2022-09-23 04:42] LABS: Hematocrit 36.8 % (37.0-47.0); Mean Corpuscular HGB Conc 32.6 g/dL (30.0-36.0); Mean Corpuscular Hemoglobin 27.8 pg (28.0-34.0); Mean Corpuscular Volume 85.4 fl (81-99); Mean Platelet Volume 10.9 fL (7.4-10.4); Platelet Count 205 10^3/cmm (130-400); Red Blood Count 4.31 10^6/uL (4.1-5.3); Red Cell Distribution Width 13.2 % (12.1-15.1); White Blood Count 7.9 10^3/uL (4.0-10.0)
[2022-09-23 05:07] LABS: Anion Gap 13.9 (5-19); Blood Urea Nitrogen 11 mg/dL (8-23); Calcium 8.5 mg/dL (8.5-10.5); Carbon Dioxide 28 mmol/L (22-29); Chloride 98 mmol/L (98-107); Glomerular Filtration Rate 160.7 mL/min (90-130); Glucose 174 mg/dL (65-115); Osmolality Calculated 286 mOsm/kg (285-295); Potassium 3.9 mmol/L (3.5-5.1); Sodium 136 mmol/L (136-145)
[2022-09-23 05:14] LABS: Absolute Segmented Neutrophil 5.8 10/cmm (1.6-7.1); Band Neutrophils Absolute 1.1 10^3/cmm (0.0-1.2); Eosinophils 0 %; Lymphocytes 6 %; Monocytes Absolute 0.3 10^3/cmm (0.1-0.6); Segmented Neutrophils 73 %; Total Cells Counted 100 (0-100)
[2022-09-23 05:15] LABS: Lymphocytes Absolute 0.7 10^3/cmm (1.2-3.4)
[2022-09-23 05:16] LABS: Absolute Neutrophil 6.9 10^3/cmm (1.4-6.5); Platelet Estimate Normal (Normal); Spherocytes 1+
[2022-09-23] MEDS: morphine 4 mg/mL SDV 1 mL 2 MG IVP (05:49)
[2022-09-23] MEDS: budesonide 0.5 mg/2 mL Neb INHALATION ×2 (08:12→20:09)
[2022-09-23] MEDS: guaiFENesin 600 mg Tablet PO ×2 (09:34→17:28)
--- NOTE | 2022-09-23 13:51 | P.PN_ITS ---
Subjective Subjective: Patient was seen and examined this morning still has significant sob, particularly with minimum exertion. Medications: Medication Review Details: Generic Name Dose Route Start Last Admin Trade Name Freq PRN Reason Stop Dose Admin Budesonide 0.5 mg 09/22/22 08:00 09/22/22 07:27 Budesonide 0.5 M g/2 Ml Neb INHALATION 0.5 mg BID.RESPIRATORY S CH Administration Enoxaparin Sodium 40 mg 09/21/22 21:00 09/21/22 21:36 Enoxaparin 40 Mg /0.4 Ml Syringe SUBCUT 40 mg Q24H FRANCES Administration Azithromycin 500 m g/ Sodium 250 mls @ 250 mls /hr 09/22/22 13:00 09/22/22 13:42 Chloride IV 250 mls/hr Q24H FRANCES Administration Protocol Ipratropium Bromid e 0.5 mg 09/21/22 21:00 09/22/22 14:06 Ipratropium 0.5 Mg/2.5 Ml Neb INHALATION 0.5 mg Q6H.RESP FRANCES Administration Levalbuterol HCl 0.63 mg 09/22/22 02:00 09/22/22 14:06 Levalbuterol 0.6 3 Mg/3 Ml Neb INHALATION 0.63 mg Q6H.RESP FRANCES Administration Methylprednisolone Sodium Succinate 60 mg 09/22/22 13:00 09/22/22 13:42 Methylprednisolo ne Sod Succ 125 Mg /2 Ml Inj IVP 60 mg Q6H FRANCES Administration Morphine Sulfate 2 mg 09/21/22 20:58 09/21/22 21:48 Morphine 4 Mg/Ml Sdv 1 Ml IVP 2 mg Q4H PRN Administration SEVERE PAIN Pantoprazole Sodiu m 40 mg 09/21/22 21:00 09/21/22 21:36 Pantoprazole 40 Mg Sdv IVP 40 mg Q24H FRANCES Administration Vitals/I&O/Wt Last Vital Signs Temp 97.5 F L 09/23/22 11:42 Pulse 94 09/23/22 13:47 Resp 16 09/23/22 13:47 BP 133/69 09/23/22 11:42 Pulse Ox 94 09/23/22 13:47 O2 Del Method 09/23/22 13:47 O2 Flow Rate 3 09/23/22 13:47 09/22/22 09/23/2209/23/23 22:59 06:59 14:59 Intake Total 490 / 2202.5 500 / 2702.5 480 / 480 Output Total 600 / 600 Balance 490 / 2202.5 -100 / 2102.5 480 / 480 Weight last 48 hrs Weight 81.374 kg Weight 81.012 kg Weight 79.634 kg Weight 79.634 kg Weight 69.853 kg Physical Exam Const: COMMON NORMALS: patient oriented x3 HENMT: COMMON NORMALS: normocephalic, atraumatic, hearing grossly normal bilaterally and external ears normal HEAD & SCALP: normocephalic and atraumatic EXTERNAL EAR: Yes external ears normal Resp: COMMON NORMALS: clear to auscultation bilaterally EFFORT & INSPECTION: Yes symmetric chest movement AUSCULTATION: clear to auscultation bilaterally OTHER: Diminished air entry bilaterally, bilateral wheezing, bilateral occasional rhonchi. Cardio: COMMON NORMALS: regular rate, regular rhythm, S1 normal heart sound present, S2 normal heart sound present, No gallops present (Cardio), No murmurs present (Cardio), No rub (Cardio) and Peripheral pulses 2+ throughout RATE: regular rate RHYTHM: regular rhythm HEART SOUNDS: S1 normal heart sound present and S2 normal heart sound present PERIPHERAL PULSES: Peripheral pulses 2+ throughout GI: COMMON NORMALS: Normal to inspection, nondistended, normoactive bowel sounds present, Soft to palpation, non-tender, No hepatosplenomegaly present and no masses AUSCULTATION: Yes normoactive bowel sounds PALPATION: Yes Soft to palpation and Yes No hepatosplenomegaly present RECTAL EXAM: deferred Extremity: COMMON NORMALS: no clubbing, cyanosis or edema and no pedal edema Neuro: COMMON NORMALS: patient oriented x3 Data 09/23/22 04:19 09/23/22 04:19 A&P Assessment and plan (1) Hypoxia: Most likely in setting of COPD exacerbation secondary to metapneumovirus infection. (2) Acute exacerbation of chronic obstructive airways disease: (3) Human metapneumovirus (hMPV) pneumonia: Plan 62-year-old female with past medical history of COPD came in with chief complaint of worsening shortness of breath along with cough, sore throat, runny nose, which has worsened over the last 3 days. Currently she is being managed for. Assessment: COPD exacerbation likely secondary to metapneumovirus CT chest abdomen and pelvis: ?Moderate pulmonary emphysema. Was limited study for PE evaluation due to non CTA protocol.no pulmonary embolism in the central- lobar branches. Bilateral lower extremity Dopplers vein were negative for DVT Urine Legionella antigen negative Bacterial antigen panel negative Sputum Gram stain and culture: MRSA PCR : 2D echo:Normal left ventricular size, systolic function and wall thickness, with no regional wall motion abnormalities.? Normal ?left ventricular wall thickness.Grade I/IV diastolic dysfunction. LVEF : 60 % D-Dimer: 0.86 Continue DuoNebs Solu-Medrol 60 IV every 6 Has been started on azithromycin 500 mg IV every 24 hours Supplemental oxygen as needed Tachycardia: Mild on admission. Most likely in setting of hypoxia. Can be secondary to DuoNebs. Switch from DuoNeb to ipratropium and Xopenex. Continue to monitor. Gentle IV hydration with normal saline at 75 cc/h. Full code. Regular diet. Protonix OPD prophylaxis Heparin 5000 every 8 hourly. Attestations Medical Necessity Statement*: Needs to be in hospital for the management of copd exacerbation, need for I.V Steroids. Coding Level of Care Code 60138 Diagnoses Hypoxia R09.02 Acute exacerbation of chronic obstructive airways disease J44.1 Human metapneumovirus (hMPV) pneumonia J12.3
[2022-09-23] MEDS: azithromycin 500 MG in sodium chloride 0.9% 250 ML 250 MG IV (15:11)
[2022-09-23] MEDS: enoxaparin 40 mg/0.4 mL Syringe SUBCUT (20:05)
[2022-09-23] MEDS: pantoprazole 40 mg SDV IVP (20:33)
[2022-09-24] VITALS (7 sets, daily range): BP systolic 128–149; BP diastolic 67–86; PULSE 86–99; RESP 17–20; TEMP 36.3–36.6; O2SAT 87–94
[2022-09-24] MEDS: ipratropium 0.5 mg/2.5 mL Neb INHALATION ×2 (02:10→07:43)
[2022-09-24] MEDS: levalbuterol 0.63 mg/3 mL Neb INHALATION ×2 (02:10→07:42)
[2022-09-24 05:16] LABS: Basophils % 0.4 %; Hematocrit 37.2 % (37.0-47.0); Hemoglobin 11.6 g/dL (11.5-15.3); Lymphocytes % 15.1 %; Mean Corpuscular HGB Conc 31.2 g/dL (30.0-36.0); Mean Corpuscular Hemoglobin 26.9 pg (28.0-34.0); Mean Corpuscular Volume 86.3 fl (81-99); Monocytes # 0.3 10^3/uL (0.2-0.9); Monocytes % 4.1 %; Neutrophils # 5.42 10^3/uL (1.8-7.7); Neutrophils % 78.5 %; Nucleated Red Blood Cells % 0 %; Platelet Count 222 10^3/cmm (130-400); Red Blood Count 4.31 10^6/uL (4.1-5.3); Red Cell Distribution Width 13.2 % (12.1-15.1); White Blood Count 6.9 10^3/uL (4.0-10.0)
[2022-09-24 05:43] LABS: Anion Gap 12.9 (5-19); Blood Urea Nitrogen 14 mg/dL (8-23); Calcium 8.1 mg/dL (8.5-10.5); Carbon Dioxide 31 mmol/L (22-29); Chloride 98 mmol/L (98-107); Glomerular Filtration Rate 160.7 mL/min (90-130); Glucose 181 mg/dL (65-115); Osmolality Calculated 291 mOsm/kg (285-295); Potassium 3.9 mmol/L (3.5-5.1); Sodium 138 mmol/L (136-145)
[2022-09-24] MEDS: budesonide 0.5 mg/2 mL Neb INHALATION (07:43)
--- NOTE | 2022-09-24 09:28 | P.DS_ITS ---
Discharge Providers Date of Admission: 09/22/22 11:37 Date of Discharge: September 24, 2022 Attending Provider at Admission: Kavon Cabrera MD Attending Provider at Discharge: Ovidio Beavers MD Primary Care Provider: SRINIVASA Brady Diagnoses at Discharge Discharge Diagnosis (1) Hypoxia: Status: Acute (2) Acute exacerbation of chronic obstructive airways disease: Status: Acute (3) Human metapneumovirus (hMPV) pneumonia: Status: Acute Reason for Visit Reason for Visit: RESP DISTRESS Hospital Course Hospital Course HPI: Kavon Cabrera MD 62 year old female with past medical history of COPD on night oxygen presents to the ER today with difficulty in breathing along with cough and sore throat which has been getting worse for last 3 to 4 days along with runny nose and congestion.? Patient states she has been having more more difficulty in breathing and she is to come to the ER.? In the ER she is found to be hypoxic requiring up to 3 L of oxygen supplementation to maintain saturation over 90%. On examination patient in comfortably in bed, wheezing on minimal conversation and getting more short of breath but able to have complete conversation. Blood work in the ER showed a white count 9.7, hemoglobin 12.7, D-dimer of 0.8, ABG showing a pH of 7.44, PCO2 of 38.6, PO2 75.2, chemistry showing a sodium of 131, creatinine 0.4, proBNP of 387 with respiratory viral panel positive for metapneumovirus and CT chest :Moderate pulmonary emphysema. Was limited study for PE evaluation due to non CTA protocol.no pulmonary embolism in the central- lobar branches. Hospital course: She was admitted for the management of COPD examination likely secondary to metapneumovirus: She was kept on DuoNebs, steroids, supplemental oxygen as needed, Mucinex, IV azithromycin ,urine Legionella antigen negative,Bacterial antigen panel negative ,2D echo:Normal left ventricular size, systolic function and wall thickness, with no regional wall motion abnormalities.?Normal ?left ventricular wall thickness.Grade I/IV diastolic dysfunction. LVEF : 60 %. She was responding pretty well to above medical management, shortness of breath was significantly improving, at the time of discharge she was, hemodynamically stable she qualified for 3 L home oxygen, she was discharged on p.o. prednisone 50 MG daily for another 10 days, azithromycin p.o. as well as albuterol and Pu lmicort inhaler.She will follow PCP as outpatient. Physical Exam Const: COMMON NORMALS: patient oriented x3 HENMT: COMMON NORMALS: normocephalic and atraumatic HEAD & SCALP: normocephalic and atraumatic Resp: EFFORT & INSPECTION: Yes symmetric chest movement OTHER: Minimal bilateral wheezing Cardio: COMMON NORMALS: regular rate, regular rhythm, S1 normal heart sound present, S2 normal heart sound present, No gallops present (Cardio), No murmurs present (Cardio), No rub (Cardio) and Peripheral pulses 2+ throughout RATE: regular rate RHYTHM: regular rhythm HEART SOUNDS: S1 normal heart sound present and S2 normal heart sound present PERIPHERAL PULSES: Peripheral pulses 2+ throughout GI: COMMON NORMALS: Normal to inspection, nondistended, normoactive bowel sounds present, Soft to palpation, non-tender, No hepatosplenomegaly present and no masses AUSCULTATION: Yes normoactive bowel sounds PALPATION: Yes Soft to palpation and Yes No hepatosplenomegaly present RECTAL EXAM: deferred Extremity: COMMON NORMALS: no clubbing, cyanosis or edema and no pedal edema Neuro: COMMON NORMALS: patient oriented x3 Discharge Data Studies Completed and Pending Completed Studies During Hospitalization Category Date Time Status CT chest abdomen pelvis [CT chest abdpel w/*[id number] Cat Scan 09/21/22 14:53 Completed ] Stat CV. echo complete* [id number] Routine Ultrasound 09/22/22 06:00 Completed US venous duplex lower extremity bilat [CV venous Ultrasound 09/21/22 17:26 [place] [id number]] Stat Pending at discharge Category Date Time Status BMP [Basic Metabolic Panel] AM LABS Lab 09/25/22 04:00 Ordered CBC Auto Diff [Complete Blood Count w/Auto] AM LABS Lab 09/25/22 04:00 Ordered MRSA by PCR AM LABS Lab 09/23/22 04:00 Ordered Sputum Culture and Gram Stain Routine Lab 09/22/22 18:04 Ordered Radiology Impressions Chest/Abdomen/Pelvis CT 09/21/22 14:53 IMPRESSION: 1. Mild nonspecific mediastinal adenopathy. 2. Moderate pulmonary emphysema. No acute lung findings otherwise. 3. Limited assessment for pulmonary embolism due to non CTA protocol. IMPRESSION: 1. Hepatic steatosis without cirrhosis. 2. Probable nonocclusive DVT (?vs artifacts) in the right femoral vein as described. Correlation with ultrasound/duplex imaging should be obtained. 3. No acute abdominopelvic findings otherwise. ADDENDUM: 09/21/[id number] Maher was notified by phone 6:25 p.m. Eastern time. Venous Duplex 09/21/22 17:26 IMPRESSION: 1. No evidence of deep vein thrombosis. 2. Intraluminal hypodensity on the recent CT therefore likely represented artifacts. Laboratory Results WBC 6.9 10^3/uL (4.0-10.0) 09/24/22 04:28 RBC 4.31 10^6/uL (4.1-5.3) 09/24/22 04:28 Hgb 11.6 g/dL (11.5-15.3) 09/24/22 04:28 Hct 37.2 % (37.0-47.0) 09/24/22 04:28 MCV 86.3 fl (81-99) 09/24/22 04:28 MCH 26.9 pg (28.0-34.0) L 09/24/22 04:28 MCHC 31.2 g/dL (30.0-36.0) 09/24/22 04:28 RDW 13.2 % (12.1-15.1) 09/24/22 04:28 Plt Count 222 10^3/cmm (130-400) 09/24/22 04:28 MPV 11.0 fL (7.4-10.4) H 09/24/22 04:28 Neut % (Auto) 78.5 % 09/24/22 04:28 Lymph % (Auto) 15.1 % 09/24/22 04:28 [place] % (Auto) 4.1 % 09/24/22 04:28 Eos % (Auto) 0.0 % 09/24/22 04:28 Baso % (Auto) 0.4 % 09/24/22 04:28 Neut # (Auto) 5.42 10^3/uL (1.8-7.7) 09/24/22 04:28 Lymph # (Auto) 1.0 10^3/uL (0.8-4.8) 09/24/22 04:28 [place] # (Auto) 0.3 10^3/uL (0.2-0.9) 09/24/22 04:28 Eos # (Auto) 0.0 10^3/uL (0.0-0.8) 09/24/22 04:28 Baso # (Auto) 0.0 10^3/uL (0.0-0.1) 09/24/22 04:28 Nucleated RBC % (auto) 0 % 09/24/22 04:28 Total Counted 100 (0-100) 09/23/22 04:19 Atypical Lymphs % 3.0 % (0-5) 09/23/22 04:19 Absolute Neutrophils 6.9 10^3/cmm (1.4-6.5) H 09/23/22 04:19 Segmented Neutrophils 73 % 09/23/22 04:19 Abs Segm Neuts (Man) 5.8 10/cmm (1.6-7.1) 09/23/22 04:19 Band Neutrophils 14.0 % 09/23/22 04:19 Abs Band Neuts (Man) 1.1 10^3/cmm (0.0-1.2) 09/23/22 04:19 Absolute Lymphocytes 0.7 10^3/cmm (1.2-3.4) L 09/23/22 04:19 Lymphocytes (Manual) 6 % 09/23/22 04:19 Monocytes (Manual) 4.0 % 09/23/22 04:19 Absolute Monocytes 0.3 10^3/cmm (0.1-0.6) 09/23/22 04:19 Eosinophils (Manual) 0 % 09/23/22 04:19 Absolute Eosinophils 0.0 10^3/cmm (0.0-0.7) 09/23/22 04:19 Basophils (Manual) 0.0 % 09/23/22 04:19 Absolute Basophils 0.0 10^3/cmm (0.0-0.2) 09/23/22 04:19 Nucleated RBCs # 0.0 /100WBC 09/24/22 04:28 Platelet Estimate Normal (Normal) 09/23/22 04:19 Spherocytes 1+ 09/23/22 04:19 D-Dimer 0.86 ug/mIFEU (0-0.59) H 09/21/22 15:32 Specimen Type Arterial 09/21/22 15:07 Sample Site Brachial, left 09/21/22 15:07 ABG pH 7.44 (7.35-7.45) 09/21/22 15:07 ABG pCO2 38.6 mmHg (35-45) 09/21/22 15:07 ABG pO2 75.2 mmHg (80.0-100.0) L 09/21/22 15:07 ABG HCO3 26.0 mmol/L (22-26) 09/21/22 15:07 ABG Base Excess 1.7 mmol/L (-2.0-2.0) 09/21/22 15:07 Willi Test Pos 09/21/22 15:07 Hematocrit 40.0 % (37-47) 09/21/22 15:07 Hgb O2 Saturation 95.0 % (95-100) 09/21/22 15:07 Carboxyhemoglobin 1.1 %THgb (0.4-20.1) 09/21/22 15:07 Methemoglobin 0.4 % (0.4-1.5) 09/21/22 15:07 Total Hemoglobin 13.0 g/dL (12-16) 09/21/22 15:07 O2 Delivery Device Nc 09/21/22 15:07 O2 Liters/Min 3.0 % 09/21/22 15:07 Jazz Musician ID Cak 09/21/22 15:07 Sodium 138 mmol/L (136-145) 09/24/22 04:28 Potassium 3.9 mmol/L (3.5-5.1) 09/24/22 04:28 Chloride 98 mmol/L (98-107) 09/24/22 04:28 Carbon Dioxide 31 mmol/L (22-29) H 09/24/22 04:28 Anion Gap 12.9 (5-19) 09/24/22 04:28 BUN 14 mg/dL (8-23) 09/24/22 04:28 Creatinine 0.4 mg/dL (0.5-0.9) L 09/24/22 04:28 GFR Calculation 160.7 mL/min (90-130) H 09/24/22 04:28 Glucose 181 mg/dL (65-115) H 09/24/22 04:28 Estimat Average Glucose 114 09/22/22 04:27 Hemoglobin A1c 5.6 % (4.0-6.0) 09/22/22 04:27 Calculated Osmolality 291 mOsm/kg (285-295) 09/24/22 04:28 Calcium 8.1 mg/dL (8.5-10.5) L 09/24/22 04:28 Phosphorus 1.9 mg/dL (2.5-4.5) L 09/22/22 04:27 Magnesium 2.1 mg/dL (1.7-2.3) 09/22/22 04:27 Total Bilirubin 0.3 mg/dL (0.15-1.2) 09/22/22 04:27 AST 19 U/L (0-32) 09/22/22 04:27 ALT 17 U/L (0-33) 09/22/22 04:27 Alkaline Phosphatase 92 U/L (35-105) 09/22/22 04:27 C-Reactive Protein 131.8 mg/L (0.0-4.9) H 09/21/22 15:32 NT-Pro-B Natriuret Pep 387 pg/mL (0-125) H 09/21/22 15:32 Total Protein 6.3 g/dL (6.6-8.7) L 09/22/22 04:27 Albumin 3.3 g/dL (3.5-5.2) L 09/22/22 04:27 Globulin 3.0 g/dL (1.3-4.6) 09/22/22 04:27 Triglycerides 53 mg/dL (0-150) 09/22/22 04:27 Cholesterol 126 mg/dL (0-200) 09/22/22 04:27 LDL Cholesterol, Calc 71 mg/dL (50-129) 09/22/22 04:27 HDL Cholesterol 44 mg/dL (60-100) L 09/22/22 04:27 LDL/HDL Ratio 1.61 RATIO (0.00-3.22) 09/22/22 04:27 Cholesterol/HDL Ratio 2.86 mg/dL (0.0-4.40) 09/22/22 04:27 Vitamin B12 274 pg/mL (232-1245) 09/21/22 15:32 Folate > 20.0 ng/mL (4.8-37.3) 09/21/22 15:32 Procalcitonin 0.91 ng/mL (0-0.5) H 09/21/22 15:32 TSH 1.56 uIU/mL (0.27-4.20) 09/21/22 15:32 Urine Color Yellow (Yellow) 09/22/22 05:20 Urine Appearance Clear (CLEAR) 09/22/22 05:20 Urine pH 6 (5-7) 09/22/22 05:20 Ur Specific [place] 1.015 (1.005-1.030) 09/22/22 05:20 Urine Protein 1+ (Negative) H 09/22/22 05:20 Urine Glucose (UA) 4+ (Normal) H 09/22/22 05:20 Urine Ketones 1+ (Negative) H 09/22/22 05:20 Urine Blood 2+ (Negative) H 09/22/22 05:20 Urine Nitrate Negative (Negative) 09/22/22 05:20 Urine Bilirubin Neg (Negative) 09/22/22 05:20 Urine Urobilinogen 1 mg/dL (Negative) H 09/22/22 05:20 Ur Leukocyte Esterase Negative (Negative) 09/22/22 05:20 Urine RBC 5-10 /hpf (0-2) H 09/22/22 05:20 Urine WBC 0-4 /hpf (0-5) H 09/22/22 05:20 Ur Squamous Epith Cells 0-4 /hpf (0-5) H 09/22/22 05:20 Amorphous Sediment 1+ /hpf 09/22/22 05:20 Urine Bacteria 1+ /hpf (NONE) H 09/22/22 05:20 Urine Mucus Trace /hpf 09/22/22 05:20 Nasal Influ A H1 2008 PCR Not detected (NOT DETECT) 09/21/22 15:05 Adenovirus (PCR) Not detected (NOT DETECT) 09/21/22 15:05 C. pneumoniae DNA (PCR) Not detected (NOT DETECT) 09/21/22 15:05 Coronavirus 229E (PCR) Not detected (NOT DETECT) 09/21/22 15:05 Human Metapneumovir PCR Detected (NOT DETECT) A 09/21/22 15:05 Influenza A (H1) PCR Not detected (NOT DETECT) 09/21/22 15:05 Influenza A (H3) PCR Not detected (NOT DETECT) 09/21/22 15:05 Influenza Type A (PCR) Not detected (NOT DETECT) 09/21/22 15:05 Influenza Type B (PCR) Not detected (NOT DETECT) 09/21/22 15:05 M. pneumoniae (PCR) Not detected (NOT DETECT) 09/21/22 15:05 Parainfluenza 1 (PCR) Not detected (NOT DETECT) 09/21/22 15:05 Parainfluenza 2 (PCR) Not detected (NOT DETECT) 09/21/22 15:05 Parainfluenza 3 (PCR) Not detected (NOT DETECT) 09/21/22 15:05 Parainfluenza 4 (PCR) Not detected (NOT DETECT) 09/21/22 15:05 RSV Type A (PCR) Not detected (NOT DETECT) 09/21/22 15:05 RSV Type B (PCR) Not detected (NOT DETECT) 09/21/22 15:05 Entero/Rhino (PCR) Not detected (NOT DETECT) 09/21/22 15:05 SARS-CoV-2 (PCR) Not detected (NOT DETECT) 09/21/22 15:05 Vitals Last Vital Signs Temp 97.6 F 09/24/22 08:00 Pulse 90 09/24/22 08:00 Resp 17 09/24/22 08:00 BP 149/72 09/24/22 08:00 Pulse Ox 92 09/24/22 08:00 O2 Del Method 09/24/22 08:00 O2 Flow Rate 3 09/24/22 08:00 Discharge Plan Discharge Patient Disposition: Home Condition: Stable Prescriptions: New Pulmicort Flexhaler 90 mcg/actuation aerosol powdr breath activated 1 inh inhalation BID Qty: 1 3RF Mucinex 600 mg Tablet Extended Release 12hr 600 mg PO BID 14 Days Qty: 28 0RF Zithromax 500 mg tablet 500 mg PO DAILY 5 Days Qty: 5 0RF prednisone 50 mg tablet 50 mg PO DAILY 10 Days Qty: 10 0RF Continued acetaminophen 500 mg Tablet 500 - 1,000 mg PO Q6H PRN (Reason: Pain) albuterol sulfate 90 mcg/actuation HFA aerosol inhaler 2 puff inhalation Q6H PRN (Reason: shortness of breath or wheezing) 30 Days Qty: 6.7 2RF Discharge Orders: Discharge Order (Routine); Ordered 09/24/22 Ordered By: Ovidio Beavers Other Ambulatory Orders: DME: Oxygen (Order) Location: None Selected Ordered By: Ovidio Beavers Referrals: [facility] [Outside] Nicolle Fox FNP [Primary Care Provider] - 10/01/22 10:30 am Patient Instructions: Decongestant/Expectorant (By mouth), Prednisone (By mouth), Azithromycin (By mouth), Budesonide (By breathing), Using Oxygen at Home (GEN), COPD (Chronic Obstructive Pulmonary Disease) (GEN), Opioid Safety Discharge Attestations Time Spent in Discharge Care*: less than 30 min Quality Metrics Clinical Quality Measures [ No reported AMI, CVA or VTE this stay] Coding Level of Care Code Acute Code for Chg Fwd Diagnoses Hypoxia R09.02 Acute exacerbation of chronic obstructive airways disease J44.1 Human metapneumovirus (hMPV) pneumonia J12.3
[2022-09-24] MEDS: guaiFENesin 600 mg Tablet PO (09:32)
== END 2022-09-24 13:10 | disposition home or self-care (01) | DRG 190 ==
LOC: ER 19:23 → MEDSURG 20:12
PROVIDERS: Emergency Medicine; Admitting Provider Student in an Organized Health Care Education/Training Program; Emergency Provider Emergency Medicine; PCP Nurse Practitioner Family; Visit Provider Internal Medicine
DX: J44.1 Chronic obstructive pulmonary disease with (acute) exacerbation (principal); J12.3 Human metapneumovirus pneumonia; R09.02 Hypoxemia; R00.0 Tachycardia, unspecified; Z99.81 Dependence on supplemental oxygen
CPT/HCPCS: 36415; 36600; 71260; 74177; 80048; 80053; 80061; 81001; 82607; 82746; 82805; 83036; 83735; 83880; 84100; 84145; 84443; 85007; 85025; 85378; 86140; 86403; 87449; 87486; 87581; 87633; 93005; 93306; 93970; 94640; 94760; 96372; 96374; 97116; 97161; 99285; C9113; G0378; J0456; J1650; J2270; J2920; J2930; J7030; J7050; J7613; J7614; J7626; J7644; Q9967

== ENCOUNTER 2022-10-09 07:24 | Outpatient (CLI) | payer MEDICAID, SELFPAY ==
--- NOTE | 2022-10-09 07:45 | CT_ITS ---
WS: [id number] LDCT LUNG CANCER SCREENING TECHNIQUE: Noncontrast CT of the chest with coronal and sagittal reformatted images. CLINICAL INFORMATION: J44.9 - Chronic obstructive pulmonary disease, unspecified COMPARISON: CT September 21, 2022 DLP: 81.38 mGy.cm DIvol: Mean CTDIvol: 1.60 (mGy) All CT scans at [facility] use at least one of these dose optimization techniques: automat ed exposure control; mA and/or kV adjustment per patient size (includes targeted exams where dose is matched to clinical indication); or iterative reconstruction. FINDINGS: Moderate chronic emphysematous changes. No acute pulmonary infiltrates. No focal pneumonia or pleural fluid. Normal caliber thoracic aorta. Prominent AP window anterior mediastinal and peribronchial lym ph nodes unchanged. These are nonspecific. Adrenal glands are normal. Tiny esophageal hiatal hernia. No axillary lymphadenopathy. Moderate thoracic kyphosis. Mild tree-in- bud opacities in the bilateral lower lobes likely inflammatory. Tiny RIGHT upper lobe nodule posterio rly measuring 3 mm. 3 mm RIGHT lower lobe nodule. CT/CT lung screening [id number] IMPRESSION: Prominent AP mediastinal and peribronchial lymph nodes unchanged si nce September 21, 2022. Nonspecific but may be reactive. LUNG-RADS: 2S-Benign Appearance or Behavior with Significant Findings FOLLOW UP: 12 Month: Continue annual screening with LDCT
== END 2022-10-09 07:25 | disposition home or self-care (01) ==
PROVIDERS: PCP Nurse Practitioner Family; Visit Provider Nurse Practitioner Family
DX: Z12.2 Encounter for screening for malignant neoplasm of respiratory organs (principal); J44.9 Chronic obstructive pulmonary disease, unspecified; Z87.891 Personal history of nicotine dependence
CPT/HCPCS: 71271

== ENCOUNTER → 2022-12-01 14:15 | Outpatient (BNVA) | payer MEDICAID, SELFPAY | PROVIDERS: PCP Nurse Practitioner Family; Visit Provider Internal Medicine Pulmonary Disease | DX: J43.9 Emphysema, unspecified (principal); R91.1 Solitary pulmonary nodule; Z87.891 Personal history of nicotine dependence | CPT/HCPCS: 99204 ==

== ENCOUNTER 2022-12-23 10:11 | Outpatient (CLI) | payer MEDICAID, SELFPAY ==
[2022-12-23 10:46] VITALS: PULSE 104; RESP 20; O2SAT 96
[2022-12-23] MEDS: albuterol 2.5 mg/3 mL Neb INHALATION (10:46)
[2022-12-23 10:50] VITALS: PULSE 101
== END 2022-12-23 10:12 | disposition home or self-care (01) ==
PROVIDERS: PCP Nurse Practitioner Family; Visit Provider Internal Medicine Pulmonary Disease
DX: R06.02 Shortness of breath (principal); J98.8 Other specified respiratory disorders; Z87.891 Personal history of nicotine dependence
CPT/HCPCS: 94060; 94618; 94726; 94729; J7613

== ENCOUNTER 2023-08-08 11:53 | Emergency (ER) | payer MEDICARE, MEDICAID, SELFPAY ==
[2023-08-08 11:58] VITALS: BP 122/90; PULSE 104; RESP 18; TEMP 36.8; O2SAT 90; BMI 10.3
--- NOTE | 2023-08-08 12:08 | XRR_ITS ---
PROCEDURE INFORMATION: Exam: XR Chest Exam date and time: 08/08/2023 12:14 PM Age: 63 years old Clinical indication: Patient HX: Dyspnea; Ex smoker TECHNIQUE: Imaging protocol: Radiologic exam of the chest. Views: 1 view. COMPARISON: CT lung screening [id number] 10/09/2022 7:35 AM FINDINGS: Lungs: Emphysematous changes. No focal consolidation. Pleural spaces: No pleural effusion. No pneumothorax. Heart/Mediastinum: No cardiomegaly. Bones/joints: No acute findings. XR/XR chest 1V portable [id number] IMPRESSION: Emphysema. No focal consolidation.
[2023-08-08 12:32] VITALS: O2SAT 92
--- NOTE | 2023-08-08 12:35 | ED_ITS ---
HPI - SOB/Dyspnea 2 General: Chief Complaint: Shortness of Breath/Dyspnea Stated Complaint: SOB Time Seen by Provider: 08/08/23 11:56 History of Present Illness: HPI Narrative: Patient presents to the ER by EMS with complaints of shortness of breath. This been worsening for the last 3 days. Patient's also had a headache for the last 2 days. Patient normally wears oxygen at 2 L per nasal cannula at all times but she said her oxygen was not working. When EMS arrived there patient was 88% on room air. Patient was given albuterol treatment put on oxygen in the ambulance. This increased her oxygen saturation up to 93%. Patient denies any fevers chills or being around sick contacts. Review of Systems 2 General: Reports: 10 or more systems reviewed and unremarkable except in HPI and below PFSH ED 2 PFSH: Medical History Human metapneumovirus (hMPV) pneumonia Hypoxia Upper respiratory infection Acute exacerbation of chronic obstructive airways disease COPD (chronic obstructive pulmonary disease) Family History Mother Dementia Father No problems noted. Social History Smoking and tobacco/nicotine status: former use of tobacco/nicotine Quit status (tobacco/nicotine): has quit using Year quit tobacco: 2019 Former quit date comment: 1ppd X 35 years Alcohol intake: current Alcohol intake frequency: holidays/special occasions only Substance/Drug Use: never Adopted: No Lives independently: No Household members: spouse Marital status: service: No Physical Exam 2 Const: COMMON NORMALS: no acute distress, average body habitus, patient oriented x3, no limitations, healthy appearing, alert and well nourished HENMT: COMMON NORMALS: normocephalic, atraumatic, hearing grossly normal bilaterally, external ears normal, Normal external nose present, moist oral mucous membranes and oropharynx normal HEAD & SCALP: normocephalic and atraumatic NOSE: Normal external nose present EXTERNAL EAR: Yes external ears normal Neck/C-Spine: COMMON NORMALS: no JVD Chest: COMMONS NORMALS: normal inspection of the chest and normal palpation of entire chest wall Resp: COMMON NORMALS: normal respiratory effort, No retractions, No use of accessory muscles and clear to auscultation bilaterally AUSCULTATION: clear to auscultation bilaterally Cardio: COMMON NORMALS: no JVD, regular rate, regular rhythm, S1 normal heart sound present, S2 normal heart sound present, No gallops present (Cardio), No clicks present (Cardio), No murmurs present (Cardio) and No rub (Cardio) R ATE: regular rate RHYTHM: regular rhythm HEART SOUNDS: S1 normal heart sound present and S2 normal heart sound present GI: COMMON NORMALS: Normal to inspection, nondistended, normoactive bowel sounds present, Soft to palpation, non-tender, No hepatosplenomegaly present and no masses PALPATION: Yes Soft to palpation and Yes No hepatosplenomegaly present Neuro: COMMON NORMALS: patient oriented x3 SENSORIUM/ORIENTATION: Yes alert Course 2 Vital Signs: Vital signs: Vital Signs Temperature 98.3 F 08/08/23 11:58 Pulse Rate 104 H 08/08/23 11:58 Respiratory Rate 18 08/08/23 11:58 Blood Pressure 122/90 08/08/23 11:58 Pulse Oximetry 92 08/08/23 12:32 Oxygen Delivery Me thod Nasal Cannula 08/08/23 12:32 Oxygen Flow Rate 3 08/08/23 12:32 MDM - SOB/Dyspnea Medical Decision Making Patient had lab work done as well as x-ray all of which was essentially benign. Patient was on 2 L of oxygen during her stay in the ER keep her saturation approximately 95+ percent patient be discharged home. Home will also be consulted to go over and see if her oxygen machine is malfunctioning. Patient is to follow-up with her PCP next 7 days for further evaluation and treatment as needed. Differential Diagnosis Unlikely acute exacerbation of chronic obstructive airways disease, congestive heart failure, community acquired pneumonia, asthma with exacerbation or pulmonary embolism Medical Records I reviewed the patient's medical records. Lab Data I reviewed the patient's lab results. 08/08/23 12:26 08/08/23 12:26 Labs/Radiology: Radiology Impressions Chest X-Ray 08/08/23 12:08 IMPRESSION: Emphysema. No focal consolidation. Laboratory Results WBC 9.65 10^3/uL (3.29-11.43) 08/08/23 12:26 RBC 5.23 10^6/uL (3.85-5.65) 08/08/23 12: Hgb 13.90 g/dL (11.27-16.99) 08/08/23 12:26 Hct 43.5 % (36-47) 08/08/23 12: MCV 83.2 fl (85-98) L 08/08/23 12:26 MCH 26.6 pg (27-33) L 08/08/23 12: MCHC 32.0 g/dL (30-55) 08/08/23 12: RDW 13.6 % (12.1-15.1) 08/08/23 12:26 Plt Count 193 10^3/cmm (157-399) 08/08/23 12: MPV 10.4 fL (7.4-10.4) 08/08/23 12: Neut % (Auto) 83.0 % 08/08/23 12: Lymph % (Auto) 11.7 % 08/08/23 12: [place] % (Auto) 4.9 % 08/08/23 12: Eos % (Auto) 0.1 % 08/08/23 12:26 Baso % (Auto) 0.1 % 08/08/23 12: Neut # (Auto) 8.01 10^3/uL (1.8-7.7) H 08/08/23 12: Lymph # (Auto) 1.1 10^3/uL (0.8-4.8) 08/08/23 12:26 [place] # (Auto) 0.5 10^3/uL (0.2-0.9) 08/08/23 12: Eos # (Auto) 0.0 10^3/uL (0.0-0.8) 08/08/23 12: Baso # (Auto) 0.0 10^3/uL (0.0-0.1) 08/08/23 12:26 Nucleated RBC % (auto) 0 % 08/08/23 12: Nucleated RBCs # 0.0 /100WBC 08/08/23 12:26 Sodium 135 mmol/L (136-145) L 08/08/23 12:26 Potassium 3.4 mmol/L (3.5-5.1) L 08/08/23 12:26 Chloride 96 mmol/L (98-107) L 08/08/23 12:26 Carbon Dioxide 26 mmol/L (22-29) 08/08/23 12:26 Anion Gap 16.4 (5-19) 08/08/23 12:26 BUN 6 mg/dL (8-23) L 08/08/23 12:26 Creatinine 0.4 mg/dL (0.5-0.9) L 08/08/23 12:26 GFR Calculation 160.2 mL/min (90-130) H 08/08/23 12:26 Glucose 128 mg/dL (65-115) H 08/08/23 12:26 Calculated Osmolality 279 mOsm/kg (285-295) L 08/08/23 12:26 Calcium 8.6 mg/dL (8.5-10.5) 08/08/23 12:26 Total Bilirubin 0.6 mg/dL (0.15-1.2) 08/08/23 12:26 AST 23 U/L (0-32) 08/08/23 12:26 ALT 35 U/L (0-33) H 08/08/23 12:26 Alkaline Phosphatase 93 U/L (35-105) 08/08/23 12:26 NT-Pro-B Natriuret Pep 458 pg/mL (0-125) H 08/08/23 12:26 Total Protein 7.4 g/dL (6.6-8.7) 08/08/23 12:26 Albumin 4.0 g/dL (3.5-5.2) 08/08/23 12:26 Globulin 3.4 g/dL (1.3-4.6) 08/08/23 12:26 Influenza Type A Ag negative (Negative) 08/08/23 12:30 Influenza Type B Ag negative (Negative) 08/08/23 12:30 SARS-CoV-2 Ag (Rapid) negative (Negative) 08/08/23 12:30 All radiology interpretation(s) finalized by discharge Discharge Plan Discharge Patient Disposition: Home Clinical Impression: Breath shortness, COPD (chronic obstructive pulmonary disease) Condition: Stable Prescriptions: No Action (DME) walker rollator See Rx Instructions .Route .MEDSUPPLY Qty: 1 0RF Rx Instructions: As directed Anoro Ellipta 62.5-25 mcg/actuation blister with device 1 inh inhalation DAILY Qty: 60 3RF budesonide-formoterol [Symbicort] 160-4.5 mcg/actuation HFA aerosol inhaler 1 puff inhalation BID Qty: 10.2 5RF acetaminophen 500 mg Tablet 500 - 1,000 mg PO Q6H PRN (Reason: Pain) albuterol sulfate 90 mcg/actuation HFA aerosol inhaler 2 puff inhalation Q6H PRN (Reason: shortness of breath or wheezing) 30 Days Qty: 6.7 2RF Discharge Orders: Discharge ED (Routine); Ordered 08/08/23 Ordered By: Josue Maher Referrals: Nicolle Fox FNP [Primary Care Provider] - 1 week Patient Instructions: Shortness of Breath (ED), COPD (Chronic Obstructive Pulmonary Disease) (ED) Activity Restrictions/Additional Instructions: All of your workup in the ER was benign. Your DME provider that supplies her oxygen has been consulted and they agreed to go and check your oxygen system and fix it as needed. Please follow-up with your family practice physician within the next 7 days for further evaluation and treatment. Coding Level of Care Code ED Spa Supervisor for Rere Walton
[2023-08-08 12:42] LABS: Basophils % 0.1 %; Eosinophils % 0.1 %; Hematocrit 43.5 % (36-47); Lymphocytes # 1.1 10^3/uL (0.8-4.8); Lymphocytes % 11.7 %; Mean Corpuscular Hemoglobin 26.6 pg (27-33); Mean Corpuscular Volume 83.2 fl (85-98); Mean Platelet Volume 10.4 fL (7.4-10.4); Monocytes # 0.5 10^3/uL (0.2-0.9); Monocytes % 4.9 %; Neutrophils # 8.01 10^3/uL (1.8-7.7); Nucleated Red Blood Cells % 0 %; Platelet Count 193 10^3/cmm (157-399); Red Blood Count 5.23 10^6/uL (3.85-5.65); Red Cell Distribution Width 13.6 % (12.1-15.1); White Blood Count 9.65 10^3/uL (3.29-11.43)
--- NOTE | 2023-08-08 12:44 | PC.NURSE ---
Patient's oxygen sat's were consistently at 89% on 2 liters, I increased her oxygen to 3 liters and now she is running 92%.
[2023-08-08 12:56] LABS: Influenza A by IFA negative (Negative); Influenza B by IFA negative (Negative); SARS Covid-2 Antigen negative (Negative)
[2023-08-08 13:02] LABS: Alanine Aminotransferase 35 U/L (0-33); Alkaline Phosphatase 93 U/L (35-105); Anion Gap 16.4 (5-19); Aspartate Amino Transferase 23 U/L (0-32); Blood Urea Nitrogen 6 mg/dL (8-23); Calcium 8.6 mg/dL (8.5-10.5); Carbon Dioxide 26 mmol/L (22-29); Chloride 96 mmol/L (98-107); Globulin 3.4 g/dL (1.3-4.6); Glomerular Filtration Rate 160.2 mL/min (90-130); Glucose 128 mg/dL (65-115); NT Pro B Type Natriuretic Pept 458 pg/mL (0-125); Osmolality Calculated 279 mOsm/kg (285-295); Potassium 3.4 mmol/L (3.5-5.1); Sodium 135 mmol/L (136-145); Total Bilirubin 0.6 mg/dL (0.15-1.2); Total Protein 7.4 g/dL (6.6-8.7)
[2023-08-08 13:05] LABS: Creatinine Clr Calc Pharmacy 75.3036
== END 2023-08-08 14:57 | disposition home or self-care (01) ==
PROVIDERS: Emergency Provider Emergency Medicine; PCP Nurse Practitioner Family
DX: J44.9 Chronic obstructive pulmonary disease, unspecified (principal); Z11.52 Encounter for screening for COVID-19; Z87.891 Personal history of nicotine dependence
CPT/HCPCS: 36415; 71045; 80053; 83880; 85025; 87426; 87804; 99284

== ENCOUNTER → 2024-04-05 11:11 | Outpatient (BNVA) | payer MEDICARE, MEDICAID, SELFPAY | PROVIDERS: PCP Nurse Practitioner Family; Visit Provider Nurse Practitioner Family | DX: I10 Essential (primary) hypertension (principal); R53.83 Other fatigue | CPT/HCPCS: 80053; 80061; 84443; 85025 ==

== ENCOUNTER → 2024-04-14 11:09 | Outpatient (BNVA) | payer MEDICARE, MEDICAID, SELFPAY | PROVIDERS: PCP Nurse Practitioner Family; Visit Provider Nurse Practitioner Family | DX: D69.6 Thrombocytopenia, unspecified (principal) | CPT/HCPCS: 85025 ==

== ENCOUNTER → 2025-02-21 11:21 | Outpatient (BNVA) | payer MEDICARE, MEDICAID, SELFPAY | PROVIDERS: PCP Nurse Practitioner Family; Visit Provider Nurse Practitioner Family | DX: I10 Essential (primary) hypertension (principal); R53.83 Other fatigue | CPT/HCPCS: 80053; 80061; 85025 ==

== ENCOUNTER 2025-03-14 15:17 | Outpatient (CLI) | payer MEDICARE, SELFPAY ==
--- NOTE | 2025-03-14 15:00 | CT_ITS ---
WS: [id number] CT chest wo con [id number] HISTORY: R91.1 - Solitary pulmonary nodule TECHNIQUE: Axial imaging performed through the thorax. Coronal and sagittal reformats are submitted. All CT scans at [facility] use at least one of these dose optimization techniques: automated exposure control; mA and/or kV adjustment per patient size (includes targeted exams where dose is matched to clinical indication); or iterative reconstruction. CONTRAST: None DLP: 358.24 mGy.cm COMPARISON: 10/09/2022 Lungs and central airway: Pulmonary hyperexpansion. Previously described 3 mm nodules are not identified. This may be due to slice selection and slice thickness. Centrilobular emphysema. No pneumonia. No endobronchial lesions. There is a small amount of mucus within the trachea. Pleura: Normal. No pleural effusion. Heart and pericardium: Normal size heart with no pericardial effusion. Mediastinum and rebecca: No mediastinum or hilar adenopathy. Vessels: Minimal atherosclerosis aorta. Normal size aorta and pulmonary artery. Chest wall and lower neck: No soft tissue masses. Upper abdomen: Normal. Osseous structures: Mild increase in thoracic kyphosis. CT/CT chest wo con [id number] IMPRESSION: 1. No pulmonary nodules are identified on today's CT. No pneumonia. 2. Moderate centrilobular emphysema. 3. Mild atherosclerosis aorta.
== END 2025-03-14 15:18 | disposition home or self-care (01) ==
LOC: RAD 15:24
PROVIDERS: PCP Nurse Practitioner Family; Visit Provider Nurse Practitioner Family
DX: J43.2 Centrilobular emphysema (principal); I70.0 Atherosclerosis of aorta
CPT/HCPCS: 71250